=== PATIENT | female | born 1935 | race Caucasian/White ===

== ENCOUNTER 2020-06-19 13:52 | Inpatient (IN) | payer MEDICARE, OTHER ==
[2020-06-19] MEDS ORDERED: Sodium Chloride 0.9% 10 ML Syringe FLUSH PRN (14:33)
--- NOTE | 2020-06-19 14:42 | EDM.PDOC ---
ED HPI GENERAL MEDICAL PROBLEM - General Chief Complaint: General Stated Complaint: DIARRHEA,FATIGUE,DEHYDRATION Time Seen by Provider: 06/19/20 14:10 Source of Information: Reports: Patient History Limitations: Reports: No Limitations - History of Present Illness INITIAL COMMENTS - FREE TEXT/NARRATIVE: 85-year-old female presents to the emergency department today with complaints of 2-week history of increasing weakness, confusion, decreased appetite, diarrhea and urinary incontinence. Per the patient's family, patient has been incontinent of diarrhea stool for 2 weeks. They state that appetite has decreased significantly and had 2 episodes today where her legs gave out when transferring from the chair.Family has not noticed any hemiplegia or facial droop. They states that she is just so weak that her legs give out. Pt does take eliquis daily. Family denies any recent fever or vomiting however patient was nauseated on the way to the emergency department. Patient's family also states that the patient has had a weight loss of 40 to 60 pounds in the past 6 months. Patient's primary care physician is Dr. Tariq and family reports that the patient has not had a clinic visit with him for approximately 2 months. At that time she had similar symptoms and was diagnosed with a urinary tract infection. Pt has had both of her covid vaccinations, with the second one being given at the end of May. - Related Data Allergies Allergy/AdvReac Type Severity Reaction Status Date / Time No Known Allergies Allergy Verified 06/19/20 14:12 Home Meds: Home Meds Cholecalciferol (Vitamin D3) [Vitamin D3] 1,000 units PO DAILY 04/15/15 [History] Furosemide [Lasix] 40 mg PO BID 04/15/15 [History] Isosorbide Mononitrate [Imdur] 15 mg PO DAILY 04/15/15 [History] Levothyroxine Sodium [Synthroid] 112 mcg PO DAILY 04/15/15 [History] Metoprolol Succinate [Toprol XL] 1 tab PO DAILY 04/15/15 [History] Multivitamin [Multivitamins] 1 each PO DAILY 04/15/15 [History] [place]-3/DHA/Epa/Fish Oil [Fish Oil 1,000 mg Softgel] 1,200 mg PO DAILY 04/15/15 [History] Rosuvastatin [Crestor] 10 mg PO DAILY 04/15/15 [History] Bisacodyl [Dulcolax] 5 mg PO DAILY PRN #0 tablet 04/21/15 [Rx] Docusate Sodium [Colace] 100 mg PO BID PRN cap 04/21/15 [Rx] Famotidine [Pepcid] 20 mg PO BID tablet 04/21/15 [Rx] Rivaroxaban [Xarelto] 10 mg PO DAILY #32 tablet 04/21/15 [Rx] Aspirin 325 mg PO BEDTIME 06/19/20 [History] Past Medical History HEENT History: Reports: Cataract, Hard of Hearing, Impaired Vision Other HEENT History: wears glasses, dentures Cardiovascular History: Reports: CAD, High Cholesterol, Hypertension Other Cardiovascular History: chest pain, CABG in 2012 Other Respiratory History: elevated D dimer, shortness of breath Genitourinary History: Reports: Urinary Incontinence, UTI, Recurrent [employer] History: Reports: , Spontaneous Other Musculoskeletal History: radiculopathy of leg, back pain, osteoarthritis of R hip, back surgery , elbow surgery for nerve entrapment, achilles tendon repair Neurological History: Reports: TIA Other Neuro History: "mini stroke" per patient's daughter Psychiatric History: Reports: Depression Endocrine/Metabolic History: Reports: Hypothyroidism Other Endocrine/Metabolic History: bordlerine diabetic - Infectious Disease History Infectious Disease History: Reports: Measles - Past Surgical History HEENT Surgical History: Reports: Tonsillectomy Cardiovascular Surgical History: Reports: Coronary Artery Bypass GI Surgical History: Reports: Cholecystectomy Female Surgical History: Reports: Other (See Below) Other Female Surgeries/Procedures: bladder surgery 1977 Endocrine Surgical History: Reports: Thyroidectomy Social & Family History - Family History Cardiac: Reports: Heart Failure Other Cardiac Family History: mother OBGYN: Reports: Other Oncologic Family History: patient's father had cancer, does not recall what kind - Tobacco Use Tobacco Use Status *Q: Never Tobacco User Second Hand Smoke Exposure: No - Caffeine Use Caffeine Use: Reports: Coffee, Soda - Recreational Drug Use Recreational Drug Use: No ED ROS GENERAL - Review of Systems Review Of Systems: See Below Constitutional: Denies: Fever, Chills, Diaphoresis HEENT: Reports: No Symptoms Respiratory: Reports: No Symptoms. Denies: Shortness of Breath, Cough, Sputum Cardiovascular: Reports: Dyspnea on Exertion. Denies: Chest Pain, Edema Endocrine: Reports: No Symptoms GI/Abdominal: Reports: Diarrhea, Decreased Appetite, Nausea. Denies: Abdominal Pain, Constipation, Vomiting : Reports: No Symptoms Musculoskeletal: Reports: Other (generalized weakness) Skin: Reports: No Symptoms Neurological: Reports: Confusion (increased confusion) Psychiatric: Reports: No Symptoms Hematologic/Lymphatic: Reports: No Symptoms Immunologic: Reports: No Symptoms ED EXAM, GENERAL - Physical Exam Exam: See Below Exam Limited By: Other (confusion; pt's daughter is at the bedside) General Appearance: Alert, WD/WN, No Apparent Distress Ears: Normal External Exam, Hearing Grossly Normal Nose: Normal Inspection Throat/Mouth: Normal Inspection, Normal Lips, Normal Voice, No Airway Compromise Head: Atraumatic, Normocephalic Neck: Normal Inspection, Supple, Non-Tender, Full Range of Motion Respiratory/Chest: No Respiratory Distress, Lungs Clear, Normal Breath Sounds, No Accessory Muscle Use, Chest Non-Tender Cardiovascular: Normal Peripheral Pulses, No Edema, No Murmur, Irregularly Irregular Peripheral Pulses: 2+: Radial (L), Radial (R) GI/Abdominal: Normal Bowel Sounds, Soft, Non-Tender, No Distention (Female) Exam: Deferred Rectal (Female) Exam: Deferred Back Exam: Normal Inspection, Full Range of Motion Extremities: Normal Inspection, Normal Range of Motion, Non-Tender, No Pedal Edema, Normal Capillary Refill Neurological: Alert, Disoriented, Memory Loss Recent Events. No: Oriented, Normal Cognition Psychiatric: Normal Affect, Normal Mood Lymphatic: No Adenopathy Course - Vital Signs Text/Narrative:: 85 year old female with a 2 week history of increasing confusion, diarrhea, urinary incontinence, weakness and decreased appetite. Denies any recent fever, chills, or cough. Pt did complain of shortness of breath with activity this am while ambulating from the bathroom this am and was nauseated just prior to arrival to the ED. Per the staff at [facility], the patient had two episodes this morning where her legs gave out and she was assisted to the ground from the chair by staff. I have ordered labs, UA, and a chest xray. Last Recorded V/S: Last Vital Signs Temp 98.5 F 06/19/20 14:07 Pulse 96 06/19/20 14:07 Resp 14 06/19/20 14:07 BP 165/141 H 06/19/20 14:07 Pulse Ox 96 06/19/20 14:07 - Orders/Labs/Meds Orders: Active Orders 24 hr Category Date Time Status Insert [place] Catheter [Insert Urinary Catheter] [OM.PC] Care 06/19/20 15:00 Ordered Stat Chest 1V Frontal [CR] Stat Exams 06/19/20 14:33 Taken C DIFFICILE PCR W/REFLEX [MOLEC] Stat Lab 06/19/20 15:38 Ordered STOOL CULTURE/SHIGA TOXIN [MREF] Stat Lab 06/19/20 15:38 Ordered Sodium Chloride 0.9% [Saline Flush] Med 06/19/20 14:33 Active 10 ml FLUSH ASDIRECTED PRN Saline Lock Insert [OM.PC] Stat Oth 06/19/20 14:33 Ordered Medication Orders Acetaminophen (Acetaminophen 325 Mg Tab) 650 mg PO Q6H PRN PRN Reason: Pain (Mild 1-3)/fever Hydrocodone Bitart/Acetaminophen (Acetaminophen/Hydrocodone 325-5 Mg Tab) 1 tab PO Q6H PRN PRN Reason: Pain (moderate 4-6) Albuterol/Ipratropium (Albuterol/Ipratropium 3.0-0.5 Mg/3 Ml Neb Soln) 3 ml NEB Q4H PRN PRN Reason: Shortness Of Breath/wheezing Aspirin (Aspirin 325 Mg Tab.Ec) 325 mg PO BEDTIME [facility] Cholecalciferol (Cholecalciferol (Vitamin D3) 25 Mcg Tab) 25 mcg PO DAILY [facility] Hydralazine HCl (Hydralazine 20 Mg/Ml Sdv) 10 mg IVPUSH Q4H PRN PRN Reason: Hypertension Lactated Ringer's (Ringers, Lactated) 1,000 mls @ 60 mls/hr IV ASDIRECTED WAN Promethazine HCl 12.5 mg/ (Sodium Chloride) 50.5 mls @ 100 mls/hr IV Q6H PRN PRN Reason: Nausea/Vomiting Insulin Aspart (Insuln Aspart Prot/Insulin Aspart 100 Units/Ml 3 Ml Flexpen) 0 unit SUBCUT TIDMEALS [facility]; Protocol Isosorbide Mononitrate (Isosorbide Mononitrate 30 Mg Tab.Er) 15 mg PO DAILY [facility] Levothyroxine Sodium (Levothyroxine 112 Mcg Tab) 112 mcg PO DAILY [facility] Lorazepam (Lorazepam 2 Mg/Ml Sdv) 1 mg IV Q6H PRN PRN Reason: Agitation Metoprolol Succinate (Metoprolol Succinate 50 Mg Tab.Er) 50 mg PO DAILY [facility] Multivitamins (Multivitamins,Therapeutic Tab) 1 each PO DAILY [facility] Quetiapine Fumarate (Quetiapine 25 Mg Tab) 12.5 mg PO BID PRN PRN Reason: Agitation Rivaroxaban (Rivaroxaban 10 Mg Tab) 10 mg PO DAILY [facility] Rosuvastatin Calcium (Rosuvastatin 10 Mg Tab) 10 mg PO DAILY [facility] Sodium Chloride (Sodium Chloride 0.9% 10 Ml Syringe) 10 ml FLUSH ASDIRECTED PRN PRN Reason: Keep Vein Open Last Admin: 06/19/20 15:12 Dose: 10 ml Documented by: BRIAN Labs: Laboratory Tests 06/19/20 06/19/20 06/19/20 Range/Units 14:20 14:24 14:24 WBC 6.99 (3.98-10.04) K/mm3 RBC 4.12 (3.98-5.22) M/mm3 Hgb 13.1 D (11.2-15.7) gm/dl Hct 40.1 (34.1-44.9) % MCV 97.3 H D (79.4-94.8) fl MCH 31.8 (25.6-32.2) pg MCHC 32.7 (32.2-35.5) g/dl RDW Std Deviation 47.2 H (36.4-46.3) fL Plt Count 210 (182-369) K/mm3 MPV 9.1 L (9.4-12.3) fl Neut % (Auto) 71.5 H (34.0-71.1) % Lymph % (Auto) 17.2 L (19.3-51.7) % [place] % (Auto) 10.3 (4.7-12.5) % Eos % (Auto) 0.6 L (0.7-5.8) Baso % (Auto) 0.3 (0.1-1.2) % Neut # (Auto) 5.00 (1.56-6.13) K/mm3 Lymph # (Auto) 1.20 (1.18-3.74) K/mm3 [place] # (Auto) 0.72 H (0.24-0.36) K/mm3 Eos # (Auto) 0.04 (0.04-0.36) K/mm3 Baso # (Auto) 0.02 (0.01-0.08) K/mm3 Sodium 143 (136-145) mEq/L Potassium 3.5 (3.5-5.1) mEq/L Chloride 102 (98-107) mEq/L Carbon Dioxide 32 (21-32) mEq/L Anion Gap 12.5 (5-15) BUN 13 (7-18) mg/dL Creatinine 1.2 H (0.55-1.02) mg/dL Est Cr Clr Drug Dosing 29.06 mL/min Estimated GFR (MDRD) 43 (>60) mL/min BUN/Creatinine Ratio 10.8 L (14-18) Glucose 135 H (83-115) mg/dL Hemoglobin A1c 6.2 H ( - 5.6) % Calcium 9.2 (8.5-10.1) mg/dL Magnesium 2.0 (1.8-2.4) mg/dl Total Bilirubin 0.8 (0.2-1.0) mg/dL AST 29 (15-37) U/L ALT 37 (14-59) U/L Alkaline Phosphatase 45 L (46-116) U/L C-Reactive Protein 0.4 (<1.0) mg/dL Total Protein 6.9 (6.4-8.2) g/dl Albumin 3.1 L (3.4-5.0) g/dl Globulin 3.8 gm/dL Albumin/Globulin Ratio 0.8 L (1-2) Urine Color (Yellow) Urine Appearance (Clear) Urine pH (5.0-8.0) Ur Specific [place] (1.005-1.030) Urine Protein (Negative) Urine Glucose (UA) (Negative) Urine Ketones (Negative) Urine Occult Blood (Negative) Urine Nitrite (Negative) Urine Bilirubin (Negative) Urine Urobilinogen (0.2-1.0) Ur Leukocyte Esterase (Negative) U Hyaline Cast (Auto) (0-5) /lpf Urine RBC (0-5) /hpf Urine WBC (0-5) /hpf Ur Epithelial Cells (0-5) /hpf Urine Bacteria (FEW) /hpf Urine Mucus (FEW) /hpf Influenza Type A RNA (NEGATIVE) Influenza Type B RNA (NEGATIVE) SARS-CoV-2 RNA (RISHI) (NEGATIVE) 06/19/20 06/19/20 Range/Units 14:55 15:05 WBC (3.98-10.04) K/mm3 RBC (3.98-5.22) M/mm3 Hgb (11.2-15.7) gm/dl Hct (34.1-44.9) % MCV (79.4-94.8) fl MCH (25.6-32.2) pg MCHC (32.2-35.5) g/dl RDW Std Deviation (36.4-46.3) fL Plt Count (182-369) K/mm3 MPV (9.4-12.3) fl Neut % (Auto) (34.0-71.1) % Lymph % (Auto) (19.3-51.7) % [place] % (Auto) (4.7-12.5) % Eos % (Auto) (0.7-5.8) Baso % (Auto) (0.1-1.2) % Neut # (Auto) (1.56-6.13) K/mm3 Lymph # (Auto) (1.18-3.74) K/mm3 [place] # (Auto) (0.24-0.36) K/mm3 Eos # (Auto) (0.04-0.36) K/mm3 Baso # (Auto) (0.01-0.08) K/mm3 Sodium (136-145) mEq/L Potassium (3.5-5.1) mEq/L Chloride (98-107) mEq/L Carbon Dioxide (21-32) mEq/L Anion Gap (5-15) BUN (7-18) mg/dL Creatinine (0.55-1.02) mg/dL Est Cr Clr Drug Dosing mL/min Estimated GFR (MDRD) (>60) mL/min BUN/Creatinine Ratio (14-18) Glucose (83-115) mg/dL Hemoglobin A1c ( - 5.6) % Calcium (8.5-10.1) mg/dL Magnesium (1.8-2.4) mg/dl Total Bilirubin (0.2-1.0) mg/dL AST (15-37) U/L ALT (14-59) U/L Alkaline Phosphatase (46-116) U/L C-Reactive Protein (<1.0) mg/dL Total Protein (6.4-8.2) g/dl Albumin (3.4-5.0) g/dl Globulin gm/dL Albumin/Globulin Ratio (1-2) Urine Color Yellow (Yellow) Urine Appearance Clear (Clear) Urine pH 6.5 (5.0-8.0) Ur Specific [place] 1.020 (1.005-1.030) Urine Protein 1+ H (Negative) Urine Glucose (UA) Negative (Negative) Urine Ketones Negative (Negative) Urine Occult Blood Negative (Negative) Urine Nitrite Negative (Negative) Urine Bilirubin Negative (Negative) Urine Urobilinogen 1.0 (0.2-1.0) Ur Leukocyte Esterase Negative (Negative) U Hyaline Cast (Auto) 0-5 (0-5) /lpf Urine RBC 0-5 (0-5) /hpf Urine WBC 0-5 (0-5) /hpf Ur Epithelial Cells 0-5 (0-5) /hpf Urine Bacteria Few (FEW) /hpf Urine Mucus Few (FEW) /hpf Influenza Type A RNA Negative (NEGATIVE) Influenza Type B RNA Negative (NEGATIVE) SARS-CoV-2 RNA (RISHI) Negative (NEGATIVE) Meds: Medications Generic Name Dose Route Start Last Admin Trade Name Freq PRN Reason Stop Dose Admin Acetaminophen 650 mg 06/19/20 16:37 Acetaminophen 325 Mg Tab PO Q6H PRN Pain (Mild 1-3)/fever Hydrocodone Bitart/Acetaminophen 1 tab 06/19/20 16:37 Acetaminophen/Hydrocodone 325-5 Mg Tab PO Q6H PRN Pain (moderate 4-6) Albuterol/Ipratropium 3 ml 06/19/20 16:37 Albuterol/Ipratropium 3.0-0.5 Mg/3 Ml Neb Soln NEB Q4H PRN Shortness Of Breath/wheezing Aspirin 325 mg 06/19/20 21:00 Aspirin 325 Mg Tab.Ec PO BEDTIME WAN Cholecalciferol 25 mcg 06/20/20 09:00 Cholecalciferol (Vitamin D3) 25 Mcg Tab PO DAILY WAN Hydralazine HCl 10 mg 06/19/20 16:51 Hydralazine 20 Mg/Ml Sdv IVPUSH Q4H PRN Hypertension Lactated Ringer's 1,000 mls @ 60 mls/hr 06/19/20 16:45 Ringers, Lactated IV ASDIRECTED [facility] Promethazine HCl 12.5 mg/ 50.5 mls @ 100 mls/hr 06/19/20 16:37 Sodium Chloride IV Q6H PRN Nausea/Vomiting Insulin Aspart 0 unit 06/19/20 17:00 Insuln Aspart Prot/Insulin Aspart 100 Units/Ml 3 Ml Flexpen SUBCUT TIDMEALS [facility] Protocol Isosorbide Mononitrate 15 mg 06/20/20 09:00 Isosorbide Mononitrate 30 Mg Tab.Er PO DAILY [facility] Levothyroxine Sodium 112 mcg 06/20/20 09:00 Levothyroxine 112 Mcg Tab PO DAILY [facility] Lorazepam 1 mg 06/19/20 16:37 Lorazepam 2 Mg/Ml Sdv IV Q6H PRN Agitation Metoprolol Succinate 50 mg 06/20/20 09:00 Metoprolol Succinate 50 Mg Tab.Er PO DAILY [facility] Multivitamins 1 each 06/20/20 09:00 Multivitamins,Therapeutic Tab PO DAILY [facility] Quetiapine Fumarate 12.5 mg 06/19/20 16:53 Quetiapine 25 Mg Tab PO BID PRN Agitation Rivaroxaban 10 mg 06/20/20 09:00 Rivaroxaban 10 Mg Tab PO DAILY [facility] Rosuvastatin Calcium 10 mg 06/20/20 09:00 Rosuvastatin 10 Mg Tab PO DAILY [facility] Sodium Chloride 10 ml 06/19/20 14:33 06/19/20 15:12 Sodium Chloride 0.9% 10 Ml Syringe FLUSH 10 ml ASDIRECTED PRN Administration Keep Vein Open Discontinued Medications Generic Name Dose Route Start Last Admin Trade Name Freq PRN Reason Stop Dose Admin Heparin Sodium (Porcine) 5,000 units 06/19/20 16:45 Heparin Sodium 5,000 Units/Ml Vial SUBCUT Q8H [facility] - Re-Assessments/Exams Free Text/Narrative Re-Assessment/Exam: 06/19/20 15:40 Nothing acute is appreciated on portable view of the chest. Labs reveal a WBC of 6.99, hemoglobin 13.1, hematocrit 40.1, chemistry reveals sodium of 143, potassium 3.5, anion gap 12.5, BUN 13, creatinine 1.2, glucose 135, calcium 9.2, magnesium 2.0, alk phos 45, C-reactive protein 0.4 Urinalysis is unremarkable except for 1+ protein. I have ordered stool for C. difficile and cultures as the patient has had diarrhea stools for 2 weeks, increased weakness and was previously on antibiotics. [facility] has called to tell us that the patient will be unable to come back and reside at their facility. I will call Dr. Hawley the hospitalist supervisor education to see if we can admit the patient under his care. 06/19/20 17:30 Dr. Hawley has accepted care of this patient. She will be admitted to the hospital. Departure - Departure Time of Disposition: 17:30 Disposition: Admitted As Inpatient 65 Condition: Fair Clinical Impression: Weakness generalized - Discharge Information Sepsis Event Note (ED) - Evaluation Sepsis Screening Result: No Definite Risk - Focused Exam Vital Signs: Vital Signs Temp Pulse Resp BP Pulse Ox 06/19/20 14:07 98.5 F 96 14 165/141 H 96 - My Orders Last 24 Hours: My Active Orders 06/19/20 14:33 Chest 1V Frontal [CR] Stat Sodium Chloride 0.9% [Saline Flush] 10 ml FLUSH ASDIRECTED PRN Saline Lock Insert [OM.PC] Stat 06/19/20 15:00 Insert [place] Catheter [Insert Urinary Catheter] [OM.PC] Stat 06/19/20 15:38 C DIFFICILE PCR W/REFLEX [MOLEC] Stat STOOL CULTURE/SHIGA TOXIN [MREF] Stat - Assessment/Plan Last 24 Hours: My Active Orders 06/19/20 14:33 Chest 1V Frontal [CR] Stat Sodium Chloride 0.9% [Saline Flush] 10 ml FLUSH ASDIRECTED PRN Saline Lock Insert [OM.PC] Stat 06/19/20 15:00 Insert [place] Catheter [Insert Urinary Catheter] [OM.PC] Stat 06/19/20 15:38 C DIFFICILE PCR W/REFLEX [MOLEC] Stat STOOL CULTURE/SHIGA TOXIN [MREF] Stat
[2020-06-19 16:08] LABS: CORONAVIRUS COVID-19 NAA NEGATIVE (NEGATIVE)
[2020-06-19] MEDS ORDERED: Albuterol/Ipratropium 3.0-0.5 MG/3 ML Neb Soln NEB PRN (16:37)
[2020-06-19] MEDS ORDERED: Acetaminophen/HYDROcodone 325-5 MG Tab PO PRN (16:37)
[2020-06-19] MEDS ORDERED: LORazepam 2 MG/ML SDV IV PRN (16:37)
[2020-06-19] MEDS ORDERED: Acetaminophen 325 MG Tab PO PRN (16:37)
[2020-06-19] MEDS ORDERED: Promethazine 12.5 MG in Sodium Chloride 0.9% 50 ML IV PRN (16:37)
[2020-06-19] MEDS ORDERED: Heparin Sodium 5,000 Units/ML Vial SUBCUT SCH (16:45)
[2020-06-19] MEDS ORDERED: Lactated Ringers 1,000 ML IV SCH (16:45)
[2020-06-19] MEDS ORDERED: hydrALAZINE 20 MG/ML SDV IVPUSH PRN (16:51)
[2020-06-19] MEDS ORDERED: QUEtiapine 25 MG Tab PO PRN (16:53)
[2020-06-19] MEDS ORDERED: Insuln Aspart Prot/Insulin Aspart 100 Units/ML 3 ML FlexPen SUBCUT SCH (17:00)
--- NOTE | 2020-06-19 17:06 | PCM.HP.2 ---
H&P History of Present Illness - General Date of Service: 06/19/20 Admit Problem/Dx: Admission Diagnosis/Problem Admission Diagnosis/Problem Diarrhea Source of Information: Patient, Family - History of Present Illness Initial Comments - Free Text/Narative: Patient is an 85-year-old female with a history of COPD status post CABG, prediabetes, hypertension, and hypothyroidism who was brought to the ER from assisted living due to generalized weakness and diarrhea. Patient is a poor historian due to possible dementia. As per daughter and the patient, she has been having diarrhea for about 2 weeks which has been worsening over the past 2 days associated with nausea, lightheadedness, shortness of breath when walking, and generalized weakness. Patient is so weak so that patient had episodes when her legs gave up. She did not lose consciousness. No injury to head. Otherwise patient is fine. Denies headache, chest pain, abdominal pain, fever, chills, or dysuria. In the ER, CT and the coated 19 screening were sent. Chest x-ray negative for acute change. Patient received antibiotics 2 months ago for UTI. - Related Data Allergies/Adverse Reactions: Allergies Allergy/AdvReac Type Severity Reaction Status Date / Time No Known Allergies Allergy Verified 06/19/20 14:12 Home Medications: Home Meds Cholecalciferol (Vitamin D3) [Vitamin D3] 1,000 units PO DAILY 04/15/15 [History] Furosemide [Lasix] 40 mg PO BID 04/15/15 [History] Isosorbide Mononitrate [Imdur] 15 mg PO DAILY 04/15/15 [History] Levothyroxine Sodium [Synthroid] 112 mcg PO DAILY 04/15/15 [History] Metoprolol Succinate [Toprol XL] 1 tab PO DAILY 04/15/15 [History] Multivitamin [Multivitamins] 1 each PO DAILY 04/15/15 [History] [place]-3/DHA/Epa/Fish Oil [Fish Oil 1,000 mg Softgel] 1,200 mg PO DAILY 04/15/15 [History] Rosuvastatin [Crestor] 10 mg PO DAILY 04/15/15 [History] Bisacodyl [Dulcolax] 5 mg PO DAILY PRN #0 tablet 04/21/15 [Rx] Docusate Sodium [Colace] 100 mg PO BID PRN cap 04/21/15 [Rx] Famotidine [Pepcid] 20 mg PO BID tablet 04/21/15 [Rx] Rivaroxaban [Xarelto] 10 mg PO DAILY #32 tablet 04/21/15 [Rx] Aspirin 325 mg PO BEDTIME 06/19/20 [History] Past Medical History HEENT History: Reports: Cataract, Hard of Hearing, Impaired Vision Other HEENT History: wears glasses, dentures Cardiovascular History: Reports: CAD, High Cholesterol, Hypertension Other Cardiovascular History: chest pain, CABG in 2011 Other Respiratory History: elevated D dimer, shortness of breath Genitourinary History: Reports: Urinary Incontinence, UTI, 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: , 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 Other Musculoskeletal History: radiculopathy of leg, back pain, osteoarthritis of R hip, back surgery , elbow surgery for nerve entrapment, achilles tendon repair Neurological History: Reports: TIA Other Neuro History: "mini stroke" per patient's daughter Psychiatric History: Reports: Depression Endocrine/Metabolic History: Reports: Hypothyroidism Other Endocrine/Metabolic History: bordlerine diabetic - Infectious Disease History Infectious Disease History: Reports: Measles - Past Surgical History HEENT Surgical History: Reports: Tonsillectomy Cardiovascular Surgical History: Reports: Coronary Artery Bypass GI Surgical History: Reports: Cholecystectomy Female Surgical History: Reports: Other (See Below) Other Female Surgeries/Procedures: bladder surgery 1976 Endocrine Surgical History: Reports: Thyroidectomy Social & Family History - Family History Family Medical History: No Pertinent Family History (Denies genetic diseases in the family) Cardiac: Reports: Heart Failure Other Cardiac Family History: mother OBGYN: Reports: Other Oncologic Family History: patient's father had cancer, does not recall what kind - Tobacco Use Tobacco Use Status *Q: Never Tobacco User Second Hand Smoke Exposure: No - Caffeine Use Caffeine Use: Reports: Coffee, Soda - Recreational Drug Use Recreational Drug Use: No H&P Review of Systems - Review of Systems: Review Of Systems: See Below General: Reports: Weakness, Fatigue, Decreased Appetite HEENT: Reports: No Symptoms Pulmonary: Reports: No Symptoms Cardiovascular: Reports: No Symptoms Gastrointestinal: Reports: Diarrhea, Decreased Appetite, Nausea Genitourinary: Reports: No Symptoms Musculoskeletal: Reports: No Symptoms Skin: Reports: No Symptoms Psychiatric: Reports: No Symptoms Neurological: Reports: No Symptoms Hematologic/Lymphatic: Reports: No Symptoms Immunologic: Reports: No Symptoms Exam - Exam Exam: See Below - Vital Signs Vital Signs: Last Vital Signs Temp 36.9 C 06/19/20 14:07 Pulse 96 06/19/20 14:07 Resp 14 06/19/20 14:07 BP 165/141 H 06/19/20 14:07 Pulse Ox 96 06/19/20 14:07 Weight: 74.843 kg - Exam General: Alert, Cooperative HEENT: Conjunctiva Clear, EOMI, Pupils Equal, Pupils Reactive Neck: Supple, Full Range of Motion Lungs: Clear to Auscultation, Normal Respiratory Effort Cardiovascular: Normal S1, Normal S2 GI/Abdominal Exam: Normal Bowel Sounds, Soft, Non-Tender, No Organomegaly, No Distention Extremities: Normal Inspection, Normal Range of Motion, Non-Tender, No Pedal Edema Skin: Warm, Dry, Intact Neurological: Cranial Nerves Intact, Reflexes Equal Bilateral, Strength Equal Bilateral, Normal Speech, Sensation Intact Neuro Extensive - Mental Status: Alert, Normal Mood/Affect Neuro Extensive - Motor, Sensory, Reflexes: CN II-XII Intact, Normal Reflexes Psychiatric: Alert, Normal Affect, Normal Mood - Patient Data Lab Results Last 24 hrs: Laboratory Results - last 24 hr 06/19/20 06/19/20 06/19/20 Range/Units 14:24 14:24 14:55 WBC 6.99 (3.98-10.04) K/mm3 RBC 4.12 (3.98-5.22) M/mm3 Hgb 13.1 D (11.2-15.7) gm/dl Hct 40.1 (34.1-44.9) % MCV 97.3 H D (79.4-94.8) fl MCH 31.8 (25.6-32.2) pg MCHC 32.7 (32.2-35.5) g/dl RDW Std Deviation 47.2 H (36.4-46.3) fL Plt Count 210 (182-369) K/mm3 MPV 9.1 L (9.4-12.3) fl Neut % (Auto) 71.5 H (34.0-71.1) % Lymph % (Auto) 17.2 L (19.3-51.7) % [place] % (Auto) 10.3 (4.7-12.5) % Eos % (Auto) 0.6 L (0.7-5.8) Baso % (Auto) 0.3 (0.1-1.2) % Neut # (Auto) 5.00 (1.56-6.13) K/mm3 Lymph # (Auto) 1.20 (1.18-3.74) K/mm3 [place] # (Auto) 0.72 H (0.24-0.36) K/mm3 Eos # (Auto) 0.04 (0.04-0.36) K/mm3 Baso # (Auto) 0.02 (0.01-0.08) K/mm3 Sodium 143 (136-145) mEq/L Potassium 3.5 (3.5-5.1) mEq/L Chloride 102 (98-107) mEq/L Carbon Dioxide 32 (21-32) mEq/L Anion Gap 12.5 (5-15) BUN 13 (7-18) mg/dL Creatinine 1.2 H (0.55-1.02) mg/dL Est Cr Clr Drug Dosing 29.06 mL/min Estimated GFR (MDRD) 43 (>60) mL/min BUN/Creatinine Ratio 10.8 L (14-18) Glucose 135 H (83-115) mg/dL Calcium 9.2 (8.5-10.1) mg/dL Magnesium 2.0 (1.8-2.4) mg/dl Total Bilirubin 0.8 (0.2-1.0) mg/dL AST 29 (15-37) U/L ALT 37 (14-59) U/L Alkaline Phosphatase 45 L (46-116) U/L C-Reactive Protein 0.4 (<1.0) mg/dL Total Protein 6.9 (6.4-8.2) g/dl Albumin 3.1 L (3.4-5.0) g/dl Globulin 3.8 gm/dL Albumin/Globulin Ratio 0.8 L (1-2) Urine Color (Yellow) Urine Appearance (Clear) Urine pH (5.0-8.0) Ur Specific [place] (1.005-1.030) Urine Protein (Negative) Urine Glucose (UA) (Negative) Urine Ketones (Negative) Urine Occult Blood (Negative) Urine Nitrite (Negative) Urine Bilirubin (Negative) Urine Urobilinogen (0.2-1.0) Ur Leukocyte Esterase (Negative) U Hyaline Cast (Auto) (0-5) /lpf Urine RBC (0-5) /hpf Urine WBC (0-5) /hpf Ur Epithelial Cells (0-5) /hpf Urine Bacteria (FEW) /hpf Urine Mucus (FEW) /hpf Influenza Type A RNA Negative (NEGATIVE) Influenza Type B RNA Negative (NEGATIVE) SARS-CoV-2 RNA (RISHI) Negative (NEGATIVE) 06/19/20 Range/Units 15:05 WBC (3.98-10.04) K/mm3 RBC (3.98-5.22) M/mm3 Hgb (11.2-15.7) gm/dl Hct (34.1-44.9) % MCV (79.4-94.8) fl MCH (25.6-32.2) pg MCHC (32.2-35.5) g/dl RDW Std Deviation (36.4-46.3) fL Plt Count (182-369) K/mm3 MPV (9.4-12.3) fl Neut % (Auto) (34.0-71.1) % Lymph % (Auto) (19.3-51.7) % [place] % (Auto) (4.7-12.5) % Eos % (Auto) (0.7-5.8) Baso % (Auto) (0.1-1.2) % Neut # (Auto) (1.56-6.13) K/mm3 Lymph # (Auto) (1.18-3.74) K/mm3 [place] # (Auto) (0.24-0.36) K/mm3 Eos # (Auto) (0.04-0.36) K/mm3 Baso # (Auto) (0.01-0.08) K/mm3 Sodium (136-145) mEq/L Potassium (3.5-5.1) mEq/L Chloride (98-107) mEq/L Carbon Dioxide (21-32) mEq/L Anion Gap (5-15) BUN (7-18) mg/dL Creatinine (0.55-1.02) mg/dL Est Cr Clr Drug Dosing mL/min Estimated GFR (MDRD) (>60) mL/min BUN/Creatinine Ratio (14-18) Glucose (83-115) mg/dL Calcium (8.5-10.1) mg/dL Magnesium (1.8-2.4) mg/dl Total Bilirubin (0.2-1.0) mg/dL AST (15-37) U/L ALT (14-59) U/L Alkaline Phosphatase (46-116) U/L C-Reactive Protein (<1.0) mg/dL Total Protein (6.4-8.2) g/dl Albumin (3.4-5.0) g/dl Globulin gm/dL Albumin/Globulin Ratio (1-2) Urine Color Yellow (Yellow) Urine Appearance Clear (Clear) Urine pH 6.5 (5.0-8.0) Ur Specific [place] 1.020 (1.005-1.030) Urine Protein 1+ H (Negative) Urine Glucose (UA) Negative (Negative) Urine Ketones Negative (Negative) Urine Occult Blood Negative (Negative) Urine Nitrite Negative (Negative) Urine Bilirubin Negative (Negative) Urine Urobilinogen 1.0 (0.2-1.0) Ur Leukocyte Esterase Negative (Negative) U Hyaline Cast (Auto) 0-5 (0-5) /lpf Urine RBC 0-5 (0-5) /hpf Urine WBC 0-5 (0-5) /hpf Ur Epithelial Cells 0-5 (0-5) /hpf Urine Bacteria Few (FEW) /hpf Urine Mucus Few (FEW) /hpf Influenza Type A RNA (NEGATIVE) Influenza Type B RNA (NEGATIVE) SARS-CoV-2 RNA (RISHI) (NEGATIVE) Result Diagrams: 06/19/20 14:24 06/19/20 14:24 Sepsis Event Note - Evaluation Sepsis Screening Result: No Definite Risk - Focused Exam Vital Signs: Vital Signs Temp Pulse Resp BP Pulse Ox 06/19/20 14:07 36.9 C 96 14 165/141 H 96 Problem List Initiated/Reviewed/Updated: Yes Orders Last 24hrs: Active Orders 24 hr Category Date Time Status Patient Status [ADT] Routine ADT 06/19/20 16:37 Ordered Bedrest Bedside Commode [RC] ASDIRECTED Care 06/19/20 16:37 Ordered Cardiac Monitoring [RC] CONTINUOUS Care 06/19/20 16:39 Ordered EKG Documentation Completion [RC] ROUTINE Care 06/19/20 16:44 Ordered Height and Weight [RC] DAILY Care 06/19/20 16:37 Ordered Insert [place] Catheter [Insert Urinary Catheter] [OM.PC] Care 06/19/20 15:00 Ordered Stat Intake and Output [RC] QSHIFT Care 06/19/20 16:39 Ordered Oxygen Therapy [RC] PRN Care 06/19/20 16:37 Ordered RT Aerosol Therapy [RC] ASDIRECTED Care 06/19/20 16:44 Ordered VTE/DVT Education [RC] PER UNIT ROUTINE Care 06/19/20 16:37 Ordered Vital Signs [RC] Q4H Care 06/19/20 16:37 Ordered Consult to Nuclear Chemistry Technician [CONS] Routine Cons 06/19/20 16:44 Ordered OT Evaluation and Treatment [CONS] Routine Cons 06/19/20 16:44 Ordered PT Evaluation and Treatment [CONS] Routine Cons 06/19/20 16:44 Ordered Clear Liquid Diet [DIET] Diet 06/19/20 Dinner Ordered Chest 1V Frontal [CR] Stat Exams 06/19/20 14:33 Taken A1C [GLYCOSYLATED HEMOGLOBIN,HGBA1C] [CHEM] Stat Lab 06/19/20 16:56 Ordered C DIFFICILE PCR W/REFLEX [MOLEC] Stat Lab 06/19/20 15:38 Ordered CBC WITH AUTO DIFF [HEME] DAILY Lab 06/20/20 05:00 Ordered CBC WITH AUTO DIFF [HEME] DAILY Lab 06/21/20 05:00 Ordered CBC WITH AUTO DIFF [HEME] DAILY Lab 06/22/20 05:00 Ordered CBC WITH AUTO DIFF [HEME] DAILY Lab 06/23/20 05:00 Ordered CBC WITH AUTO DIFF [HEME] DAILY Lab 06/24/20 05:00 Ordered CBC WITH AUTO DIFF [HEME] DAILY Lab 06/25/20 05:00 Ordered COMPREHENSIVE METABOLIC PN,CMP [CHEM] DAILY Lab 06/20/20 05:00 Ordered COMPREHENSIVE METABOLIC PN,CMP [CHEM] DAILY Lab 06/21/20 05:00 Ordered COMPREHENSIVE METABOLIC PN,CMP [CHEM] DAILY Lab 06/22/20 05:00 Ordered COMPREHENSIVE METABOLIC PN,CMP [CHEM] DAILY Lab 06/23/20 05:00 Ordered COMPREHENSIVE METABOLIC PN,CMP [CHEM] DAILY Lab 06/24/20 05:00 Ordered COMPREHENSIVE METABOLIC PN,CMP [CHEM] DAILY Lab 06/25/20 05:00 Ordered INR,PT,PROTHROMBIN TIME [COAG] Routine Lab 06/19/20 16:44 Ordered PRO B-TYPE NATRIUR PEPT,BNPPRO [CHEM] Stat Lab 06/19/20 16:56 Ordered PROCALCITONIN [REF] Routine Lab 06/19/20 16:57 Ordered STOOL CULTURE/SHIGA TOXIN [MREF] Stat Lab 06/19/20 15:38 Ordered STOOL CULTURE/SHIGA TOXIN [MREF] Stat Lab 06/19/20 16:53 Ordered TROPONIN I [CHEM] Q6H Lab 06/19/20 16:44 Ordered TROPONIN I [CHEM] Q6H Lab 06/19/20 22:44 Ordered Acetaminophen [TylenoL] Med 06/19/20 16:37 Ordered 650 mg PO Q6H PRN Acetaminophen/HYDROcodone [[place] 325-5 MG] Med 06/19/20 16:37 Ordered 1 tab PO Q6H PRN Albuterol/Ipratropium [DuoNeb 3.0-0.5 MG/3 ML] Med 06/19/20 16:37 Ordered 3 ml NEB Q4H PRN Aspirin Med 06/19/20 21:00 Ordered 325 mg PO BEDTIME Cholecalciferol (Vitamin D3) [Vitamin D3] Med 06/20/20 09:00 Ordered 1,000 units PO DAILY Insuln Asp Prot/Insulin Aspart [NovoLOG Mix 70-30] Med 06/19/20 17:00 Ordered See Protocol SUBCUT TIDMEALS Isosorbide Mononitrate [Imdur] Med 06/20/20 09:00 Ordered 15 mg PO DAILY LORazepam [Ativan] Med 06/19/20 16:37 Ordered 1 mg IV Q6H PRN Lactated Ringers [Ringers, Lactated] 1,000 ml Med 06/19/20 16:45 Ordered IV ASDIRECTED Levothyroxine Med 06/20/20 09:00 Ordered 112 mcg PO DAILY Metoprolol Succinate [Toprol XL] Med 06/20/20 09:00 Ordered 50 mg PO DAILY Multivitamin [Multivitamins] Med 06/20/20 09:00 Ordered 1 each PO DAILY Promethazine [Phenergan] 12.5 mg Med 06/19/20 16:37 Ordered Sodium Chloride 0.9% [Normal Saline] 50 ml IV Q6H QUEtiapine [SEROqueL] Med 06/19/20 16:53 Ordered 12.5 mg PO BID PRN Rivaroxaban [Xarelto] Med 06/20/20 09:00 Ordered 10 mg PO DAILY Rosuvastatin [Crestor] Med 06/20/20 09:00 Ordered 10 mg PO DAILY Sodium Chloride 0.9% [Saline Flush] Med 06/19/20 14:33 Active 10 ml FLUSH ASDIRECTED PRN hydrALAZINE [Apresoline] Med 06/19/20 16:51 Ordered 10 mg IVPUSH Q4H PRN Saline Lock Insert [OM.PC] Stat Oth 06/19/20 14:33 Ordered Resuscitation Status Routine Resus Stat 06/19/20 16:37 Ordered Medication Orders Acetaminophen (Acetaminophen 325 Mg Tab) 650 mg PO Q6H PRN PRN Reason: Pain (Mild 1-3)/fever Hydrocodone Bitart/Acetaminophen (Acetaminophen/Hydrocodone 325-5 Mg Tab) 1 tab PO Q6H PRN PRN Reason: Pain (moderate 4-6) Albuterol/Ipratropium (Albuterol/Ipratropium 3.0-0.5 Mg/3 Ml Neb Soln) 3 ml NEB Q4H PRN PRN Reason: Shortness Of Breath/wheezing Cholecalciferol (Cholecalciferol (Vitamin D3) 25 Mcg Tab) mcg PO DAILY WAN Hydralazine HCl (Hydralazine 20 Mg/Ml Sdv) 10 mg IVPUSH Q4H PRN PRN Reason: Hypertension Lactated Ringer's (Ringers, Lactated) 1,000 mls @ 60 mls/hr IV ASDIRECTED WAN Promethazine HCl 12.5 mg/ (Sodium Chloride) 50.5 mls @ 100 mls/hr IV Q6H PRN PRN Reason: Nausea/Vomiting Insulin Aspart (Insuln Aspart Prot/Insulin Aspart 100 Units/Ml 3 Ml Flexpen) 0 unit SUBCUT TIDMEALS WAN; Protocol Isosorbide Mononitrate (Isosorbide Mononitrate 30 Mg Tab.Er) 15 mg PO DAILY [facility] Levothyroxine Sodium (Levothyroxine 112 Mcg Tab) 112 mcg PO DAILY [facility] Lorazepam (Lorazepam 2 Mg/Ml Sdv) 1 mg IV Q6H PRN PRN Reason: Agitation Metoprolol Succinate (Metoprolol Succinate 50 Mg Tab.Er) 50 mg PO DAILY [facility] Non-Formulary Medication (Aspirin) 325 mg PO BEDTIME WAN Non-Formulary Medication (Multivitamin [Multivitamins]) 1 each PO DAILY [facility] Quetiapine Fumarate (Quetiapine 25 Mg Tab) 12.5 mg PO BID PRN PRN Reason: Agitation Rivaroxaban (Rivaroxaban 10 Mg Tab) 10 mg PO DAILY [facility] Rosuvastatin Calcium (Rosuvastatin 10 Mg Tab) 10 mg PO DAILY [facility] Sodium Chloride (Sodium Chloride 0.9% 10 Ml Syringe) 10 ml FLUSH ASDIRECTED PRN PRN Reason: Keep Vein Open Last Admin: 06/19/20 15:12 Dose: 10 ml Documented by: BRIAN Assessment/Plan Comment:: Patient is an 85-year-old female with a history of COPD status post CABG, prediabetes, hypertension, and hypothyroidism who was brought to the ER from assisted living due to generalized weakness and diarrhea. Assessment and plan: Diarrhea Etiology unknown History of use of antibiotics 2 months ago for UTI C. difficile Stool culture IV fluid Generalized weakness Could be due to dehydration from diarrhea. No evidence of infection. No focal neurological deficits IV fluid PT OT CAD, s/p CABG Continue home medication aspirin and statin Prediabetes Hemoglobin A1c Insulin sliding scale HTN Continue home medication Imdur and metoprolol Hydralazine as needed ADAMA or ADAMA on CKD, creatinine 0.9 on 04/19/2015 Along with nephrotoxic meds Intake and output Repeat the renal function the morning Dehydration IV fluid Self care deficit As per daughter, patient has lost 40 to 6 pounds over the past 6 months Possible dementia PT OT Dietitian consult Hypothyroidism Continue home medication Synthroid DVT prophylaxis: Xarelto (do not know why patient is on Xarelto. Will discuss with the family) CODE STATUS: DNR/DNI. Discussed with the patient and the daughter about the C ODE STATUS. Both agreed with DNR and DNI. as per daughter, patient has a will- DNR/DNI. Disposition: PT OT - Mortality Measure Prognosis:: Poor
[2020-06-19 17:19] LABS: HEMOGLOBIN A1C 6.2 %
[2020-06-19] MEDS: Heparin Sodium 5,000 Units/ML Vial SUBCUT SCH ×2 (21:35→21:40)
[2020-06-19] MEDS: Donepezil 10 MG Tab PO SCH (21:35)
[2020-06-19] MEDS: Rosuvastatin 10 MG Tab PO SCH (21:35)
[2020-06-19] MEDS: Aspirin 325 MG Tab.EC PO SCH (21:35)
[2020-06-20] MEDS: Heparin Sodium 5,000 Units/ML Vial SUBCUT SCH (06:24)
--- NOTE | 2020-06-20 07:57 | CR ---
Chest: Portable view of the chest was obtained. Comparison: Prior chest x-ray of 07/03/11. Heart size and mediastinum are within normal limits for portable technique. Previous sternotomy is noted. Small parenchymal density which correlates to calcification within the pleura is noted within the upper right lung. Lungs otherwise are clear. No acute osseous finding is noted. Impression: 1. Findings as noted above. 2. Nothing acute is seen on portable chest x-ray. Diagnostic code #2
[2020-06-20] MEDS ORDERED: Rivaroxaban 10 MG Tab PO SCH (09:00)
[2020-06-20] MEDS ORDERED: Rosuvastatin 10 MG Tab PO SCH (09:00)
[2020-06-20] MEDS ORDERED: Multivitamins,Therapeutic Tab PO SCH (09:00)
[2020-06-20] MEDS ORDERED: Metoprolol Succinate 25 MG Tab.ER PO SCH (09:00)
[2020-06-20] MEDS ORDERED: Metoprolol Succinate 50 MG Tab.ER PO SCH ×2 (09:00)
[2020-06-20] MEDS ORDERED: Isosorbide Mononitrate 30 MG Tab.ER PO SCH (09:00)
[2020-06-20] MEDS: Levothyroxine 112 MCG Tab PO SCH (09:09)
[2020-06-20] MEDS: Sodium Chloride/Potassium Chloride Tab PO SCH ×2 (09:09→19:48)
[2020-06-20] MEDS: Cholecalciferol (Vitamin D3) 25 MCG Tab PO SCH (09:09)
--- NOTE | 2020-06-20 11:10 | PCM.PN ---
- General Info Date of Service: 06/20/20 Admission Dx/Problem (Free Text): Admission Diagnosis/Problem Admission Diagnosis/Problem Diarrhea Subjective Update: Patient is an 85-year-old female with a history of COPD status post CABG, prediabetes, hypertension, and hypothyroidism who was brought to the ER from assisted living due to generalized weakness and diarrhea. Patient no longer has diarrhea. Denies nausea or vomiting. Vital signs are stable and acceptable C. difficile pending Platelets 160, potassium 2.8, creatinine 1.1 MSE 6.2 Pro BMP 2411, troponin negative x2 - Review of Systems Systems Review Comment:: General: Reports: Weakness, Fatigue, Decreased Appetite HEENT: Reports: No Symptoms Pulmonary: Reports: No Symptoms Cardiovascular: Reports: No Symptoms Gastrointestinal: Reports: Decreased Appetite, Genitourinary: Reports: No Symptoms Musculoskeletal: Reports: No Symptoms Skin: Reports: No Symptoms Psychiatric: Reports: No Symptoms Neurological: Reports: No Symptoms Hematologic/Lymphatic: Reports: No Symptoms Immunologic: Reports: No Symptoms - Patient Data Vitals - Most Recent: Last Vital Signs Temp 36.4 C 06/20/20 08:14 Pulse 58 L 06/20/20 09:08 Resp 18 06/20/20 08:14 BP 92/56 L 06/20/20 09:08 Pulse Ox 97 06/20/20 08:14 Weight - Most Recent: 69.989 kg I&O - Last 24 Hours: Intake & Output 06/19/20 06/20/20 06/20/20 22:59 06:59 14:59 Intake Total 120 688 Output Total 40 Balance 120 648 Lab Results Last 24 Hours: Laboratory Results - last 24 hr 06/19/20 06/19/20 06/19/20 Range/Units 14:20 14:24 14:24 WBC 6.99 (3.98-10.04) K/mm3 RBC 4.12 (3.98-5.22) M/mm3 Hgb 13.1 D (11.2-15.7) gm/dl Hct 40.1 (34.1-44.9) % MCV 97.3 H D (79.4-94.8) fl MCH 31.8 (25.6-32.2) pg MCHC 32.7 (32.2-35.5) g/dl RDW Std Deviation 47.2 H (36.4-46.3) fL Plt Count 210 (182-369) K/mm3 MPV 9.1 L (9.4-12.3) fl Neut % (Auto) 71.5 H (34.0-71.1) % Lymph % (Auto) 17.2 L (19.3-51.7) % [place] % (Auto) 10.3 (4.7-12.5) % Eos % (Auto) 0.6 L (0.7-5.8) Baso % (Auto) 0.3 (0.1-1.2) % Neut # (Auto) 5.00 (1.56-6.13) K/mm3 Lymph # (Auto) 1.20 (1.18-3.74) K/mm3 [place] # (Auto) 0.72 H (0.24-0.36) K/mm3 Eos # (Auto) 0.04 (0.04-0.36) K/mm3 Baso # (Auto) 0.02 (0.01-0.08) K/mm3 PT (9.7-12.0) SECONDS INR Sodium 143 (136-145) mEq/L Potassium 3.5 (3.5-5.1) mEq/L Chloride 102 (98-107) mEq/L Carbon Dioxide 32 (21-32) mEq/L Anion Gap 12.5 (5-15) BUN 13 (7-18) mg/dL Creatinine 1.2 H (0.55-1.02) mg/dL Est Cr Clr Drug Dosing 29.06 mL/min Estimated GFR (MDRD) 43 (>60) mL/min BUN/Creatinine Ratio 10.8 L (14-18) Glucose 135 H (83-115) mg/dL POC Glucose (83-110) mg/dL Hemoglobin A1c 6.2 H ( - 5.6) % Calcium 9.2 (8.5-10.1) mg/dL Magnesium 2.0 (1.8-2.4) mg/dl Total Bilirubin 0.8 (0.2-1.0) mg/dL AST 29 (15-37) U/L ALT 37 (14-59) U/L Alkaline Phosphatase 45 L (46-116) U/L Troponin I (0.00-0.056) ng/mL C-Reactive Protein 0.4 (<1.0) mg/dL NT-Pro-B Natriuret Pep (0-450) pg/mL Total Protein 6.9 (6.4-8.2) g/dl Albumin 3.1 L (3.4-5.0) g/dl Globulin 3.8 gm/dL Albumin/Globulin Ratio 0.8 L (1-2) Urine Color (Yellow) Urine Appearance (Clear) Urine pH (5.0-8.0) Ur Specific [place] (1.005-1.030) Urine Protein (Negative) Urine Glucose (UA) (Negative) Urine Ketones (Negative) Urine Occult Blood (Negative) Urine Nitrite (Negative) Urine Bilirubin (Negative) Urine Urobilinogen (0.2-1.0) Ur Leukocyte Esterase (Negative) U Hyaline Cast (Auto) (0-5) /lpf Urine RBC (0-5) /hpf Urine WBC (0-5) /hpf Ur Epithelial Cells (0-5) /hpf Urine Bacteria (FEW) /hpf Urine Mucus (FEW) /hpf Influenza Type A RNA (NEGATIVE) Influenza Type B RNA (NEGATIVE) SARS-CoV-2 RNA (RISHI) (NEGATIVE) MRSA (PCR) 06/19/20 06/19/20 06/19/20 Range/Units 14:55 15:05 17:15 WBC (3.98-10.04) K/mm3 RBC (3.98-5.22) M/mm3 Hgb (11.2-15.7) gm/dl Hct (34.1-44.9) % MCV (79.4-94.8) fl MCH (25.6-32.2) pg MCHC (32.2-35.5) g/dl RDW Std Deviation (36.4-46.3) fL Plt Count (182-369) K/mm3 MPV (9.4-12.3) fl Neut % (Auto) (34.0-71.1) % Lymph % (Auto) (19.3-51.7) % [place] % (Auto) (4.7-12.5) % Eos % (Auto) (0.7-5.8) Baso % (Auto) (0.1-1.2) % Neut # (Auto) (1.56-6.13) K/mm3 Lymph # (Auto) (1.18-3.74) K/mm3 [place] # (Auto) (0.24-0.36) K/mm3 Eos # (Auto) (0.04-0.36) K/mm3 Baso # (Auto) (0.01-0.08) K/mm3 PT 11.9 (9.7-12.0) SECONDS INR 1.11 Sodium (136-145) mEq/L Potassium (3.5-5.1) mEq/L Chloride (98-107) mEq/L Carbon Dioxide (21-32) mEq/L Anion Gap (5-15) BUN (7-18) mg/dL Creatinine (0.55-1.02) mg/dL Est Cr Clr Drug Dosing mL/min Estimated GFR (MDRD) (>60) mL/min BUN/Creatinine Ratio (14-18) Glucose (83-115) mg/dL POC Glucose (83-110) mg/dL Hemoglobin A1c ( - 5.6) % Calcium (8.5-10.1) mg/dL Magnesium (1.8-2.4) mg/dl Total Bilirubin (0.2-1.0) mg/dL AST (15-37) U/L ALT (14-59) U/L Alkaline Phosphatase (46-116) U/L Troponin I (0.00-0.056) ng/mL C-Reactive Protein (<1.0) mg/dL NT-Pro-B Natriuret Pep (0-450) pg/mL Total Protein (6.4-8.2) g/dl Albumin (3.4-5.0) g/dl Globulin gm/dL Albumin/Globulin Ratio (1-2) Urine Color Yellow (Yellow) Urine Appearance Clear (Clear) Urine pH 6.5 (5.0-8.0) Ur Specific [place] 1.020 (1.005-1.030) Urine Protein 1+ H (Negative) Urine Glucose (UA) Negative (Negative) Urine Ketones Negative (Negative) Urine Occult Blood Negative (Negative) Urine Nitrite Negative (Negative) Urine Bilirubin Negative (Negative) Urine Urobilinogen 1.0 (0.2-1.0) Ur Leukocyte Esterase Negative (Negative) U Hyaline Cast (Auto) 0-5 (0-5) /lpf Urine RBC 0-5 (0-5) /hpf Urine WBC 0-5 (0-5) /hpf Ur Epithelial Cells 0-5 (0-5) /hpf Urine Bacteria Few (FEW) /hpf Urine Mucus Few (FEW) /hpf Influenza Type A RNA Negative (NEGATIVE) Influenza Type B RNA Negative (NEGATIVE) SARS-CoV-2 RNA (RISHI) Negative (NEGATIVE) MRSA (PCR) 06/19/20 06/19/20 06/19/20 Range/Units 17:15 17:15 21:47 WBC (3.98-10.04) K/mm3 RBC (3.98-5.22) M/mm3 Hgb (11.2-15.7) gm/dl Hct (34.1-44.9) % MCV (79.4-94.8) fl MCH (25.6-32.2) pg MCHC (32.2-35.5) g/dl RDW Std Deviation (36.4-46.3) fL Plt Count (182-369) K/mm3 MPV (9.4-12.3) fl Neut % (Auto) (34.0-71.1) % Lymph % (Auto) (19.3-51.7) % [place] % (Auto) (4.7-12.5) % Eos % (Auto) (0.7-5.8) Baso % (Auto) (0.1-1.2) % Neut # (Auto) (1.56-6.13) K/mm3 Lymph # (Auto) (1.18-3.74) K/mm3 [place] # (Auto) (0.24-0.36) K/mm3 Eos # (Auto) (0.04-0.36) K/mm3 Baso # (Auto) (0.01-0.08) K/mm3 PT (9.7-12.0) SECONDS INR Sodium (136-145) mEq/L Potassium (3.5-5.1) mEq/L Chloride (98-107) mEq/L Carbon Dioxide (21-32) mEq/L Anion Gap (5-15) BUN (7-18) mg/dL Creatinine (0.55-1.02) mg/dL Est Cr Clr Drug Dosing mL/min Estimated GFR (MDRD) (>60) mL/min BUN/Creatinine Ratio (14-18) Glucose (83-115) mg/dL POC Glucose (83-110) mg/dL Hemoglobin A1c ( - 5.6) % Calcium (8.5-10.1) mg/dL Magnesium (1.8-2.4) mg/dl Total Bilirubin (0.2-1.0) mg/dL AST (15-37) U/L ALT (14-59) U/L Alkaline Phosphatase (46-116) U/L Troponin I < 0.017 (0.00-0.056) ng/mL C-Reactive Protein (<1.0) mg/dL NT-Pro-B Natriuret Pep 2411 H (0-450) pg/mL Total Protein (6.4-8.2) g/dl Albumin (3.4-5.0) g/dl Globulin gm/dL Albumin/Globulin Ratio (1-2) Urine Color (Yellow) Urine Appearance (Clear) Urine pH (5.0-8.0) Ur Specific [place] (1.005-1.030) Urine Protein (Negative) Urine Glucose (UA) (Negative) Urine Ketones (Negative) Urine Occult Blood (Negative) Urine Nitrite (Negative) Urine Bilirubin (Negative) Urine Urobilinogen (0.2-1.0) Ur Leukocyte Esterase (Negative) U Hyaline Cast (Auto) (0-5) /lpf Urine RBC (0-5) /hpf Urine WBC (0-5) /hpf Ur Epithelial Cells (0-5) /hpf Urine Bacteria (FEW) /hpf Urine Mucus (FEW) /hpf Influenza Type A RNA (NEGATIVE) Influenza Type B RNA (NEGATIVE) SARS-CoV-2 RNA (RISHI) (NEGATIVE) MRSA (PCR) Negative 06/19/20 06/19/20 06/20/20 Range/Units 22:34 23:21 06:15 WBC 5.74 (3.98-10.04) K/mm3 RBC 3.75 L (3.98-5.22) M/mm3 Hgb 12.0 (11.2-15.7) gm/dl Hct 36.7 (34.1-44.9) % MCV 97.9 H (79.4-94.8) fl MCH 32.0 (25.6-32.2) pg MCHC 32.7 (32.2-35.5) g/dl RDW Std Deviation 47.9 H (36.4-46.3) fL Plt Count 160 L (182-369) K/mm3 MPV 9.3 L (9.4-12.3) fl Neut % (Auto) 58.1 (34.0-71.1) % Lymph % (Auto) 25.3 (19.3-51.7) % [place] % (Auto) 12.9 H (4.7-12.5) % Eos % (Auto) 3.3 (0.7-5.8) Baso % (Auto) 0.2 (0.1-1.2) % Neut # (Auto) 3.34 (1.56-6.13) K/mm3 Lymph # (Auto) 1.45 (1.18-3.74) K/mm3 [place] # (Auto) 0.74 H (0.24-0.36) K/mm3 Eos # (Auto) 0.19 (0.04-0.36) K/mm3 Baso # (Auto) 0.01 (0.01-0.08) K/mm3 PT (9.7-12.0) SECONDS INR Sodium (136-145) mEq/L Potassium (3.5-5.1) mEq/L Chloride (98-107) mEq/L Carbon Dioxide (21-32) mEq/L Anion Gap (5-15) BUN (7-18) mg/dL Creatinine (0.55-1.02) mg/dL Est Cr Clr Drug Dosing mL/min Estimated GFR (MDRD) (>60) mL/min BUN/Creatinine Ratio (14-18) Glucose (83-115) mg/dL POC Glucose 99 (83-110) mg/dL Hemoglobin A1c ( - 5.6) % Calcium (8.5-10.1) mg/dL Magnesium (1.8-2.4) mg/dl Total Bilirubin (0.2-1.0) mg/dL AST (15-37) U/L ALT (14-59) U/L Alkaline Phosphatase (46-116) U/L Troponin I < 0.017 (0.00-0.056) ng/mL C-Reactive Protein (<1.0) mg/dL NT-Pro-B Natriuret Pep (0-450) pg/mL Total Protein (6.4-8.2) g/dl Albumin (3.4-5.0) g/dl Globulin gm/dL Albumin/Globulin Ratio (1-2) Urine Color (Yellow) Urine Appearance (Clear) Urine pH (5.0-8.0) Ur Specific [place] (1.005-1.030) Urine Protein (Negative) Urine Glucose (UA) (Negative) Urine Ketones (Negative) Urine Occult Blood (Negative) Urine Nitrite (Negative) Urine Bilirubin (Negative) Urine Urobilinogen (0.2-1.0) Ur Leukocyte Esterase (Negative) U Hyaline Cast (Auto) (0-5) /lpf Urine RBC (0-5) /hpf Urine WBC (0-5) /hpf Ur Epithelial Cells (0-5) /hpf Urine Bacteria (FEW) /hpf Urine Mucus (FEW) /hpf Influenza Type A RNA (NEGATIVE) Influenza Type B RNA (NEGATIVE) SARS-CoV-2 RNA (RISHI) (NEGATIVE) MRSA (PCR) 06/20/20 06/20/20 Range/Units 06:15 06:27 WBC (3.98-10.04) K/mm3 RBC (3.98-5.22) M/mm3 Hgb (11.2-15.7) gm/dl Hct (34.1-44.9) % MCV (79.4-94.8) fl MCH (25.6-32.2) pg MCHC (32.2-35.5) g/dl RDW Std Deviation (36.4-46.3) fL Plt Count (182-369) K/mm3 MPV (9.4-12.3) fl Neut % (Auto) (34.0-71.1) % Lymph % (Auto) (19.3-51.7) % [place] % (Auto) (4.7-12.5) % Eos % (Auto) (0.7-5.8) Baso % (Auto) (0.1-1.2) % Neut # (Auto) (1.56-6.13) K/mm3 Lymph # (Auto) (1.18-3.74) K/mm3 [place] # (Auto) (0.24-0.36) K/mm3 Eos # (Auto) (0.04-0.36) K/mm3 Baso # (Auto) (0.01-0.08) K/mm3 PT (9.7-12.0) SECONDS INR Sodium 145 (136-145) mEq/L Potassium 2.8 L (3.5-5.1) mEq/L Chloride 105 (98-107) mEq/L Carbon Dioxide 32 (21-32) mEq/L Anion Gap 10.8 (5-15) BUN 14 (7-18) mg/dL Creatinine 1.1 H (0.55-1.02) mg/dL Est Cr Clr Drug Dosing 31.70 mL/min Estimated GFR (MDRD) 47 (>60) mL/min BUN/Creatinine Ratio 12.7 L (14-18) Glucose 99 (83-115) mg/dL POC Glucose 101 (83-110) mg/dL Hemoglobin A1c ( - 5.6) % Calcium 9.1 (8.5-10.1) mg/dL Magnesium (1.8-2.4) mg/dl Total Bilirubin 0.8 (0.2-1.0) mg/dL AST 25 (15-37) U/L ALT 25 (14-59) U/L Alkaline Phosphatase 39 L (46-116) U/L Troponin I (0.00-0.056) ng/mL C-Reactive Protein (<1.0) mg/dL NT-Pro-B Natriuret Pep (0-450) pg/mL Total Protein 5.9 L (6.4-8.2) g/dl Albumin 2.6 L (3.4-5.0) g/dl Globulin 3.3 gm/dL Albumin/Globulin Ratio 0.8 L (1-2) Urine Color (Yellow) Urine Appearance (Clear) Urine pH (5.0-8.0) Ur Specific [place] (1.005-1.030) Urine Protein (Negative) Urine Glucose (UA) (Negative) Urine Ketones (Negative) Urine Occult Blood (Negative) Urine Nitrite (Negative) Urine Bilirubin (Negative) Urine Urobilinogen (0.2-1.0) Ur Leukocyte Esterase (Negative) U Hyaline Cast (Auto) (0-5) /lpf Urine RBC (0-5) /hpf Urine WBC (0-5) /hpf Ur Epithelial Cells (0-5) /hpf Urine Bacteria (FEW) /hpf Urine Mucus (FEW) /hpf Influenza Type A RNA (NEGATIVE) Influenza Type B RNA (NEGATIVE) SARS-CoV-2 RNA (RISHI) (NEGATIVE) MRSA (PCR) Med Orders - Current: Current Medications Acetaminophen (Acetaminophen 325 Mg Tab) 650 mg PO Q6H PRN PRN Reason: Pain (Mild 1-3)/fever Hydrocodone Bitart/Acetaminophen (Acetaminophen/Hydrocodone 325-5 Mg Tab) 1 tab PO Q6H PRN PRN Reason: Pain (moderate 4-6) Albuterol/Ipratropium (Albuterol/Ipratropium 3.0-0.5 Mg/3 Ml Neb Soln) 3 ml NEB Q4H PRN PRN Reason: Shortness Of Breath/wheezing Aspirin (Aspirin 325 Mg Tab.Ec) 325 mg PO BEDTIME [facility] Last Admin: 06/19/20 21:35 Dose: 325 mg Documented by: Cholecalciferol (Cholecalciferol (Vitamin D3) 25 Mcg Tab) 25 mcg PO DAILY [facility] Last Admin: 06/20/20 09:09 Dose: 25 mcg Documented by: Donepezil HCl (Donepezil 10 Mg Tab) 10 mg PO BEDTIME [facility] Last Admin: 06/19/20 21:35 Dose: 10 mg Documented by: Enoxaparin Sodium (Enoxaparin 40 Mg/0.4 Ml Syringe) 40 mg SUBCUT DAILY [facility] Hydralazine HCl (Hydralazine 20 Mg/Ml Sdv) 10 mg IVPUSH Q4H PRN PRN Reason: Hypertension Promethazine HCl 12.5 mg/ (Sodium Chloride) 50.5 mls @ 100 mls/hr IV Q6H PRN PRN Reason: Nausea/Vomiting Insulin Human Lispro (Insulin Lispro 100 Unit/Ml) 0 unit SUBCUT TIDMEALS [facility]; Protocol Last Admin: 06/20/20 07:42 Dose: Not Given Documented by: Isosorbide Mononitrate (Isosorbide Mononitrate 30 Mg Tab.Er) 15 mg PO DAILY [facility] Last Admin: 06/20/20 09:07 Dose: 15 mg Documented by: Levothyroxine Sodium (Levothyroxine 112 Mcg Tab) 112 mcg PO DAILY [facility] Last Admin: 06/20/20 09:09 Dose: 112 mcg Documented by: Lorazepam (Lorazepam 2 Mg/Ml Sdv) 1 mg IV Q6H PRN PRN Reason: Agitation Metoprolol Succinate (Metoprolol Succinate 25 Mg Tab.Er) 25 mg PO DAILY [facility] Last Admin: 06/20/20 09:08 Dose: Not Given Documented by: Oral Electrolytes (Sodium Chloride/Potassium Chloride Tab) 1 each PO Q2H [facility] Stop: 06/20/20 16:16 Last Admin: 06/20/20 09:09 Dose: 1 each Documented by: Quetiapine Fumarate (Quetiapine 25 Mg Tab) 12.5 mg PO BID PRN PRN Reason: Agitation Rosuvastatin Calcium (Rosuvastatin 10 Mg Tab) 40 mg PO BEDTIME [facility] Last Admin: 06/19/20 21:35 Dose: 40 mg Documented by: Sodium Chloride (Sodium Chloride 0.9% 10 Ml Syringe) 10 ml FLUSH ASDIRECTED PRN PRN Reason: Keep Vein Open Last Admin: 06/19/20 15:12 Dose: 10 ml Documented by: Discontinued Medications Heparin Sodium (Porcine) (Heparin Sodium 5,000 Units/Ml Vial) 5,000 units SUBCUT Q8H [facility] Last Admin: 06/20/20 09:22 Dose: Not Given Documented by: Heparin Sodium (Porcine) (Heparin Sodium 5,000 Units/Ml Vial) 5,000 units SUBCUT Q8H [facility] Last Admin: 06/20/20 06:24 Dose: 5,000 units Documented by: Lactated Ringer's (Ringers, Lactated) 1,000 mls @ 60 mls/hr IV ASDIRECTED [facility] Last Admin: 06/19/20 21:40 Dose: 60 mls/hr Documented by: Metoprolol Succinate (Metoprolol Succinate 50 Mg Tab.Er) 50 mg PO DAILY [facility] Metoprolol Succinate (Metoprolol Succinate 50 Mg Tab.Er) 25 mg PO DAILY [facility] - Exam Physical Findings Comments:: General: Alert, Cooperative HEENT: Conjunctiva Clear, EOMI, Pupils Equal, Pupils Reactive Neck: Supple, Full Range of Motion Lungs: Clear to Auscultation, Normal Respiratory Effort Cardiovascular: Normal S1, Normal S2 GI/Abdominal Exam: Normal Bowel Sounds, Soft, Non-Tender, No Organomegaly, No Distention Extremities: Normal Inspection, Normal Range of Motion, Non-Tender, No Pedal Edema Skin: Warm, Dry, Intact Neurological: Cranial Nerves Intact, Reflexes Equal Bilateral, Strength Equal Bilateral, Normal Speech, Sensation Intact Neuro Extensive - Mental Status: Alert, Normal Mood/Affect Neuro Extensive - Motor, Sensory, Reflexes: CN II-XII Intact, Normal Reflexes Psychiatric: Alert, Normal Affect, Normal Mood - Patient Data Lab Results Last 24 hrs: Laboratory Results - last 24 hr 06/19/20 06/19/20 06/19/20 Range/Units 14:20 14:24 14:24 WBC 6.99 (3.98-10.04) K/mm3 RBC 4.12 (3.98-5.22) M/mm3 Hgb 13.1 D (11.2-15.7) gm/dl Hct 40.1 (34.1-44.9) % MCV 97.3 H D (79.4-94.8) fl MCH 31.8 (25.6-32.2) pg MCHC 32.7 (32.2-35.5) g/dl RDW Std Deviation 47.2 H (36.4-46.3) fL Plt Count 210 (182-369) K/mm3 MPV 9.1 L (9.4-12.3) fl Neut % (Auto) 71.5 H (34.0-71.1) % Lymph % (Auto) 17.2 L (19.3-51.7) % [place] % (Auto) 10.3 (4.7-12.5) % Eos % (Auto) 0.6 L (0.7-5.8) Baso % (Auto) 0.3 (0.1-1.2) % Neut # (Auto) 5.00 (1.56-6.13) K/mm3 Lymph # (Auto) 1.20 (1.18-3.74) K/mm3 [place] # (Auto) 0.72 H (0.24-0.36) K/mm3 Eos # (Auto) 0.04 (0.04-0.36) K/mm3 Baso # (Auto) 0.02 (0.01-0.08) K/mm3 PT (9.7-12.0) SECONDS INR Sodium 143 (136-145) mEq/L Potassium 3.5 (3.5-5.1) mEq/L Chloride 102 (98-107) mEq/L Carbon Dioxide 32 (21-32) mEq/L Anion Gap 12.5 (5-15) BUN 13 (7-18) mg/dL Creatinine 1.2 H (0.55-1.02) mg/dL Est Cr Clr Drug Dosing 29.06 mL/min Estimated GFR (MDRD) 43 (>60) mL/min BUN/Creatinine Ratio 10.8 L (14-18) Glucose 135 H (83-115) mg/dL POC Glucose (83-110) mg/dL Hemoglobin A1c 6.2 H ( - 5.6) % Calcium 9.2 (8.5-10.1) mg/dL Magnesium 2.0 (1.8-2.4) mg/dl Total Bilirubin 0.8 (0.2-1.0) mg/dL AST 29 (15-37) U/L ALT 37 (14-59) U/L Alkaline Phosphatase 45 L (46-116) U/L Troponin I (0.00-0.056) ng/mL C-Reactive Protein 0.4 (<1.0) mg/dL NT-Pro-B Natriuret Pep (0-450) pg/mL Total Protein 6.9 (6.4-8.2) g/dl Albumin 3.1 L (3.4-5.0) g/dl Globulin 3.8 gm/dL Albumin/Globulin Ratio 0.8 L (1-2) Urine Color (Yellow) Urine Appearance (Clear) Urine pH (5.0-8.0) Ur Specific [place] (1.005-1.030) Urine Protein (Negative) Urine Glucose (UA) (Negative) Urine Ketones (Negative) Urine Occult Blood (Negative) Urine Nitrite (Negative) Urine Bilirubin (Negative) Urine Urobilinogen (0.2-1.0) Ur Leukocyte Esterase (Negative) U Hyaline Cast (Auto) (0-5) /lpf Urine RBC (0-5) /hpf Urine WBC (0-5) /hpf Ur Epithelial Cells (0-5) /hpf Urine Bacteria (FEW) /hpf Urine Mucus (FEW) /hpf Influenza Type A RNA (NEGATIVE) Influenza Type B RNA (NEGATIVE) SARS-CoV-2 RNA (RISHI) (NEGATIVE) MRSA (PCR) 06/19/20 06/19/20 06/19/20 Range/Units 14:55 15:05 17:15 WBC (3.98-10.04) K/mm3 RBC (3.98-5.22) M/mm3 Hgb (11.2-15.7) gm/dl Hct (34.1-44.9) % MCV (79.4-94.8) fl MCH (25.6-32.2) pg MCHC (32.2-35.5) g/dl RDW Std Deviation (36.4-46.3) fL Plt Count (182-369) K/mm3 MPV (9.4-12.3) fl Neut % (Auto) (34.0-71.1) % Lymph % (Auto) (19.3-51.7) % [place] % (Auto) (4.7-12.5) % Eos % (Auto) (0.7-5.8) Baso % (Auto) (0.1-1.2) % Neut # (Auto) (1.56-6.13) K/mm3 Lymph # (Auto) (1.18-3.74) K/mm3 [place] # (Auto) (0.24-0.36) K/mm3 Eos # (Auto) (0.04-0.36) K/mm3 Baso # (Auto) (0.01-0.08) K/mm3 PT 11.9 (9.7-12.0) SECONDS INR 1.11 Sodium (136-145) mEq/L Potassium (3.5-5.1) mEq/L Chloride (98-107) mEq/L Carbon Dioxide (21-32) mEq/L Anion Gap (5-15) BUN (7-18) mg/dL Creatinine (0.55-1.02) mg/dL Est Cr Clr Drug Dosing mL/min Estimated GFR (MDRD) (>60) mL/min BUN/Creatinine Ratio (14-18) Glucose (83-115) mg/dL POC Glucose (83-110) mg/dL Hemoglobin A1c ( - 5.6) % Calcium (8.5-10.1) mg/dL Magnesium (1.8-2.4) mg/dl Total Bilirubin (0.2-1.0) mg/dL AST (15-37) U/L ALT (14-59) U/L Alkaline Phosphatase (46-116) U/L Troponin I (0.00-0.056) ng/mL C-Reactive Protein (<1.0) mg/dL NT-Pro-B Natriuret Pep (0-450) pg/mL Total Protein (6.4-8.2) g/dl Albumin (3.4-5.0) g/dl Globulin gm/dL Albumin/Globulin Ratio (1-2) Urine Color Yellow (Yellow) Urine Appearance Clear (Clear) Urine pH 6.5 (5.0-8.0) Ur Specific [place] 1.020 (1.005-1.030) Urine Protein 1+ H (Negative) Urine Glucose (UA) Negative (Negative) Urine Ketones Negative (Negative) Urine Occult Blood Negative (Negative) Urine Nitrite Negative (Negative) Urine Bilirubin Negative (Negative) Urine Urobilinogen 1.0 (0.2-1.0) Ur Leukocyte Esterase Negative (Negative) U Hyaline Cast (Auto) 0-5 (0-5) /lpf Urine RBC 0-5 (0-5) /hpf Urine WBC 0-5 (0-5) /hpf Ur Epithelial Cells 0-5 (0-5) /hpf Urine Bacteria Few (FEW) /hpf Urine Mucus Few (FEW) /hpf Influenza Type A RNA Negative (NEGATIVE) Influenza Type B RNA Negative (NEGATIVE) SARS-CoV-2 RNA (RISHI) Negative (NEGATIVE) MRSA (PCR) 06/19/20 06/19/20 06/19/20 Range/Units 17:15 17:15 21:47 WBC (3.98-10.04) K/mm3 RBC (3.98-5.22) M/mm3 Hgb (11.2-15.7) gm/dl Hct (34.1-44.9) % MCV (79.4-94.8) fl MCH (25.6-32.2) pg MCHC (32.2-35.5) g/dl RDW Std Deviation (36.4-46.3) fL Plt Count (182-369) K/mm3 MPV (9.4-12.3) fl Neut % (Auto) (34.0-71.1) % Lymph % (Auto) (19.3-51.7) % [place] % (Auto) (4.7-12.5) % Eos % (Auto) (0.7-5.8) Baso % (Auto) (0.1-1.2) % Neut # (Auto) (1.56-6.13) K/mm3 Lymph # (Auto) (1.18-3.74) K/mm3 [place] # (Auto) (0.24-0.36) K/mm3 Eos # (Auto) (0.04-0.36) K/mm3 Baso # (Auto) (0.01-0.08) K/mm3 PT (9.7-12.0) SECONDS INR Sodium (136-145) mEq/L Potassium (3.5-5.1) mEq/L Chloride (98-107) mEq/L Carbon Dioxide (21-32) mEq/L Anion Gap (5-15) BUN (7-18) mg/dL Creatinine (0.55-1.02) mg/dL Est Cr Clr Drug Dosing mL/min Estimated GFR (MDRD) (>60) mL/min BUN/Creatinine Ratio (14-18) Glucose (83-115) mg/dL POC Glucose (83-110) mg/dL Hemoglobin A1c ( - 5.6) % Calcium (8.5-10.1) mg/dL Magnesium (1.8-2.4) mg/dl Total Bilirubin (0.2-1.0) mg/dL AST (15-37) U/L ALT (14-59) U/L Alkaline Phosphatase (46-116) U/L Troponin I < 0.017 (0.00-0.056) ng/mL C-Reactive Protein (<1.0) mg/dL NT-Pro-B Natriuret Pep 2411 H (0-450) pg/mL Total Protein (6.4-8.2) g/dl Albumin (3.4-5.0) g/dl Globulin gm/dL Albumin/Globulin Ratio (1-2) Urine Color (Yellow) Urine Appearance (Clear) Urine pH (5.0-8.0) Ur Specific [place] (1.005-1.030) Urine Protein (Negative) Urine Glucose (UA) (Negative) Urine Ketones (Negative) Urine Occult Blood (Negative) Urine Nitrite (Negative) Urine Bilirubin (Negative) Urine Urobilinogen (0.2-1.0) Ur Leukocyte Esterase (Negative) U Hyaline Cast (Auto) (0-5) /lpf Urine RBC (0-5) /hpf Urine WBC (0-5) /hpf Ur Epithelial Cells (0-5) /hpf Urine Bacteria (FEW) /hpf Urine Mucus (FEW) /hpf Influenza Type A RNA (NEGATIVE) Influenza Type B RNA (NEGATIVE) SARS-CoV-2 RNA (RISHI) (NEGATIVE) MRSA (PCR) Negative 06/19/20 06/19/20 06/20/20 Range/Units 22:34 23:21 06:15 WBC 5.74 (3.98-10.04) K/mm3 RBC 3.75 L (3.98-5.22) M/mm3 Hgb 12.0 (11.2-15.7) gm/dl Hct 36.7 (34.1-44.9) % MCV 97.9 H (79.4-94.8) fl MCH 32.0 (25.6-32.2) pg MCHC 32.7 (32.2-35.5) g/dl RDW Std Deviation 47.9 H (36.4-46.3) fL Plt Count 160 L (182-369) K/mm3 MPV 9.3 L (9.4-12.3) fl Neut % (Auto) 58.1 (34.0-71.1) % Lymph % (Auto) 25.3 (19.3-51.7) % [place] % (Auto) 12.9 H (4.7-12.5) % Eos % (Auto) 3.3 (0.7-5.8) Baso % (Auto) 0.2 (0.1-1.2) % Neut # (Auto) 3.34 (1.56-6.13) K/mm3 Lymph # (Auto) 1.45 (1.18-3.74) K/mm3 [place] # (Auto) 0.74 H (0.24-0.36) K/mm3 Eos # (Auto) 0.19 (0.04-0.36) K/mm3 Baso # (Auto) 0.01 (0.01-0.08) K/mm3 PT (9.7-12.0) SECONDS INR Sodium (136-145) mEq/L Potassium (3.5-5.1) mEq/L Chloride (98-107) mEq/L Carbon Dioxide (21-32) mEq/L Anion Gap (5-15) BUN (7-18) mg/dL Creatinine (0.55-1.02) mg/dL Est Cr Clr Drug Dosing mL/min Estimated GFR (MDRD) (>60) mL/min BUN/Creatinine Ratio (14-18) Glucose (83-115) mg/dL POC Glucose 99 (83-110) mg/dL Hemoglobin A1c ( - 5.6) % Calcium (8.5-10.1) mg/dL Magnesium (1.8-2.4) mg/dl Total Bilirubin (0.2-1.0) mg/dL AST (15-37) U/L ALT (14-59) U/L Alkaline Phosphatase (46-116) U/L Troponin I < 0.017 (0.00-0.056) ng/mL C-Reactive Protein (<1.0) mg/dL NT-Pro-B Natriuret Pep (0-450) pg/mL Total Protein (6.4-8.2) g/dl Albumin (3.4-5.0) g/dl Globulin gm/dL Albumin/Globulin Ratio (1-2) Urine Color (Yellow) Urine Appearance (Clear) Urine pH (5.0-8.0) Ur Specific [place] (1.005-1.030) Urine Protein (Negative) Urine Glucose (UA) (Negative) Urine Ketones (Negative) Urine Occult Blood (Negative) Urine Nitrite (Negative) Urine Bilirubin (Negative) Urine Urobilinogen (0.2-1.0) Ur Leukocyte Esterase (Negative) U Hyaline Cast (Auto) (0-5) /lpf Urine RBC (0-5) /hpf Urine WBC (0-5) /hpf Ur Epithelial Cells (0-5) /hpf Urine Bacteria (FEW) /hpf Urine Mucus (FEW) /hpf Influenza Type A RNA (NEGATIVE) Influenza Type B RNA (NEGATIVE) SARS-CoV-2 RNA (RISHI) (NEGATIVE) MRSA (PCR) 06/20/20 06/20/20 Range/Units 06:15 06:27 WBC (3.98-10.04) K/mm3 RBC (3.98-5.22) M/mm3 Hgb (11.2-15.7) gm/dl Hct (34.1-44.9) % MCV (79.4-94.8) fl MCH (25.6-32.2) pg MCHC (32.2-35.5) g/dl RDW Std Deviation (36.4-46.3) fL Plt Count (182-369) K/mm3 MPV (9.4-12.3) fl Neut % (Auto) (34.0-71.1) % Lymph % (Auto) (19.3-51.7) % [place] % (Auto) (4.7-12.5) % Eos % (Auto) (0.7-5.8) Baso % (Auto) (0.1-1.2) % Neut # (Auto) (1.56-6.13) K/mm3 Lymph # (Auto) (1.18-3.74) K/mm3 [place] # (Auto) (0.24-0.36) K/mm3 Eos # (Auto) (0.04-0.36) K/mm3 Baso # (Auto) (0.01-0.08) K/mm3 PT (9.7-12.0) SECONDS INR Sodium 145 (136-145) mEq/L Potassium 2.8 L (3.5-5.1) mEq/L Chloride 105 (98-107) mEq/L Carbon Dioxide 32 (21-32) mEq/L Anion Gap 10.8 (5-15) BUN 14 (7-18) mg/dL Creatinine 1.1 H (0.55-1.02) mg/dL Est Cr Clr Drug Dosing 31.70 mL/min Estimated GFR (MDRD) 47 (>60) mL/min BUN/Creatinine Ratio 12.7 L (14-18) Glucose 99 (83-115) mg/dL POC Glucose 101 (83-110) mg/dL Hemoglobin A1c ( - 5.6) % Calcium 9.1 (8.5-10.1) mg/dL Magnesium (1.8-2.4) mg/dl Total Bilirubin 0.8 (0.2-1.0) mg/dL AST 25 (15-37) U/L ALT 25 (14-59) U/L Alkaline Phosphatase 39 L (46-116) U/L Troponin I (0.00-0.056) ng/mL C-Reactive Protein (<1.0) mg/dL NT-Pro-B Natriuret Pep (0-450) pg/mL Total Protein 5.9 L (6.4-8.2) g/dl Albumin 2.6 L (3.4-5.0) g/dl Globulin 3.3 gm/dL Albumin/Globulin Ratio 0.8 L (1-2) Urine Color (Yellow) Urine Appearance (Clear) Urine pH (5.0-8.0) Ur Specific [place] (1.005-1.030) Urine Protein (Negative) Urine Glucose (UA) (Negative) Urine Ketones (Negative) Urine Occult Blood (Negative) Urine Nitrite (Negative) Urine Bilirubin (Negative) Urine Urobilinogen (0.2-1.0) Ur Leukocyte Esterase (Negative) U Hyaline Cast (Auto) (0-5) /lpf Urine RBC (0-5) /hpf Urine WBC (0-5) /hpf Ur Epithelial Cells (0-5) /hpf Urine Bacteria (FEW) /hpf Urine Mucus (FEW) /hpf Influenza Type A RNA (NEGATIVE) Influenza Type B RNA (NEGATIVE) SARS-CoV-2 RNA (RISHI) (NEGATIVE) MRSA (PCR) Result Diagrams: 06/20/20 06:15 06/20/20 06:15 Sepsis Event Note - Evaluation Sepsis Screening Result: No Definite Risk - Focused Exam Vital Signs: Vital Signs Temp Pulse Resp BP Pulse Ox 06/20/20 09:08 58 L 92/56 L 06/20/20 09:07 92/56 L 06/20/20 08:14 36.4 C 58 L 18 92/56 L 97 06/20/20 03:55 36.8 C 65 16 112/51 L 96 - Problem List Review Problem List Initiated/Reviewed/Updated: Yes - My Orders Last 24 Hours: My Active Orders 06/19/20 16:37 Patient Status [ADT] Routine Bedrest Bedside Commode [RC] ASDIRECTED Oxygen Therapy [RC] PRN VTE/DVT Education [RC] DAILY Vital Signs [RC] Q4HR Acetaminophen [TylenoL] 650 mg PO Q6H PRN Acetaminophen/HYDROcodone [[place] 325-5 MG] 1 tab PO Q6H PRN Albuterol/Ipratropium [DuoNeb 3.0-0.5 MG/3 ML] 3 ml NEB Q4H PRN LORazepam [Ativan] 1 mg IV Q6H PRN Promethazine [Phenergan] 12.5 mg Sodium Chloride 0.9% [Normal Saline] 50 ml IV Q6H Resuscitation Status Routine 06/19/20 16:39 Cardiac Monitoring [RC] CONTINUOUS Intake and Output [RC] 04,16 06/19/20 16:44 RT Aerosol Therapy [RC] ASDIRECTED Consult to Homicide Investigator [CONS] Routine OT Evaluation and Treatment [CONS] Routine PT Evaluation and Treatment [CONS] Routine 06/19/20 16:51 hydrALAZINE [Apresoline] 10 mg IVPUSH Q4H PRN 06/19/20 16:53 QUEtiapine [SEROqueL] 12.5 mg PO BID PRN 06/19/20 17:54 PROCALCITONIN [REF] Routine 06/19/20 19:19 Insulin Lispro [HumaLOG] See Protocol SUBCUT TIDMEALS 06/19/20 20:01 Blood Glucose Check, Bedside [RC] QIDACANDBED 06/19/20 21:00 Aspirin [Ecotrin] 325 mg PO BEDTIME Donepezil [Aricept] 10 mg PO BEDTIME Rosuvastatin [Crestor] 40 mg PO BEDTIME 06/20/20 08:15 Sodium Chloride/KCl [Thermotabs] 1 each PO Q2H 06/20/20 09:00 Cholecalciferol (Vitamin D3) [Vitamin D3] 25 mcg PO DAILY Isosorbide Mononitrate [Imdur] 15 mg PO DAILY Levothyroxine 112 mcg PO DAILY Metoprolol Succinate [Toprol XL] 25 mg PO DAILY 06/20/20 Lunch [employer] Diet [DIET] Enoxaparin [Lovenox] 40 mg SUBCUT DAILY 06/21/20 05:00 CBC WITH AUTO DIFF [HEME] DAILY COMPREHENSIVE METABOLIC PN,CMP [CHEM] DAILY 06/22/20 05:00 CBC WITH AUTO DIFF [HEME] DAILY COMPREHENSIVE METABOLIC PN,CMP [CHEM] DAILY 06/23/20 05:00 CBC WITH AUTO DIFF [HEME] DAILY COMPREHENSIVE METABOLIC PN,CMP [CHEM] DAILY 06/23/20 07:00 CBC W/O DIFF,HEMOGRAM [HEME] MOTH@0700 06/24/20 05:00 CBC WITH AUTO DIFF [HEME] DAILY COMPREHENSIVE METABOLIC PN,CMP [CHEM] DAILY 06/25/20 05:00 CBC WITH AUTO DIFF [HEME] DAILY COMPREHENSIVE METABOLIC PN,CMP [CHEM] DAILY 06/27/20 07:00 CBC W/O DIFF,HEMOGRAM [HEME] MOTH@0700 06/30/20 07:00 CBC W/O DIFF,HEMOGRAM [HEME] MOTH@0700 07/04/20 07:00 CBC W/O DIFF,HEMOGRAM [HEME] MOTH@0700 07/07/20 07:00 CBC W/O DIFF,HEMOGRAM [HEME] MOTH@0700 - Plan Plan:: Patient is an 85-year-old female with a history of COPD status post CABG, prediabetes, hypertension, and hypothyroidism who was brought to the ER from assisted living due to generalized weakness and diarrhea. Assessment and plan: Diarrhea Etiology unknown Improved/resolved History of use of antibiotics 2 months ago for UTI C. difficile pending Stool culture pending Discontinued IV fluid due to elevation of proBNP/CHF Generalized weakness Could be due to dehydration from diarrhea. No evidence of infection. No focal neurological deficits PT OT CAD, s/p CABG Continue home medication aspirin and statin Prediabetes Hemoglobin A1c 6.2 Insulin sliding scale HTN Continue home medication Imdur and metoprolol Hydralazine as needed ADAMA or ADAMA on CKD, creatinine 0.9 on 04/19/2015 Creatinine 1.1 Avoid nephrotoxic meds Intake and output Repeat the renal function the morning Dehydration Resolved Self care deficit As per daughter, patient has lost 40 to 6 pounds over the past 6 months Possible dementia PT OT Dietitian consult Hypothyroidism Continue home medication Synthroid Thrombocytopenia No evidence of bleeding Repeat a CBC in morning Elelvation of proBNP 2411 troponin negative x 2 Echo Electrolytes imbalance Replaced and repeat it DVT prophylaxis: Lovenox CODE STATUS: DNR/DNI. Discussed with the patient and the daughter about the CODE STATUS. Both agreed with DNR and DNI. as per daughter, patient has a will-DNR/DNI. Disposition: PT OT
[2020-06-20] MEDS: Potassium Chloride 20 MEQ Tab.ER PO SCH ×3 (11:50→21:14)
[2020-06-20] MEDS: Enoxaparin 40 MG/0.4 ML Syringe SUBCUT SCH (11:50)
[2020-06-20] MEDS: Aspirin 325 MG Tab.EC PO SCH (21:14)
[2020-06-20] MEDS: Rosuvastatin 10 MG Tab PO SCH (21:14)
[2020-06-20] MEDS: Donepezil 10 MG Tab PO SCH (21:14)
[2020-06-21] MEDS ORDERED: Lactated Ringers 1,000 ML IV SCH (08:30)
[2020-06-21] MEDS: Levothyroxine 112 MCG Tab PO SCH (08:54)
[2020-06-21] MEDS: Cholecalciferol (Vitamin D3) 25 MCG Tab PO SCH (08:54)
[2020-06-21] MEDS: Enoxaparin 40 MG/0.4 ML Syringe SUBCUT SCH (08:54)
[2020-06-21] MEDS ORDERED: amLODIPine 2.5 MG Tab PO SCH (09:00)
--- NOTE | 2020-06-21 12:24 | PCM.PN ---
- General Info Date of Service: 06/21/20 Admission Dx/Problem (Free Text): Admission Diagnosis/Problem Admission Diagnosis/Problem Diarrhea Subjective Update: Patient is an 85-year-old female with a history of COPD status post CABG, prediabetes, hypertension, and hypothyroidism who was brought to the ER from assisted living due to generalized weakness and diarrhea. Patient denies having diarrhea. Denies nausea or vomiting. Heart rate is low 52 and blood pressure is soft at times Platelets 160, creatinine 1.1 - Review of Systems Systems Review Comment:: General: Reports: Weakness, Fatigue, Decreased Appetite HEENT: Reports: No Symptoms Pulmonary: Reports: No Symptoms Cardiovascular: Reports: No Symptoms Gastrointestinal: Reports: Decreased Appetite, Genitourinary: Reports: No Symptoms Musculoskeletal: Reports: No Symptoms Skin: Reports: No Symptoms Psychiatric: Reports: No Symptoms Neurological: Reports: No Symptoms Hematologic/Lymphatic: Reports: No Symptoms Immunologic: Reports: No Symptoms - Patient Data Vitals - Most Recent: Last Vital Signs Temp 36.4 C 06/21/20 08:55 Pulse 83 06/21/20 08:55 Resp 18 06/21/20 08:55 BP 118/62 06/21/20 08:55 Pulse Ox 97 06/21/20 08:55 Weight - Most Recent: 74.525 kg I&O - Last 24 Hours: Intake & Output 06/20/20 06/21/20 06/21/20 22:59 06:59 14:59 Intake Total 1683 350 0 Output Total 550 400 Balance 1133 -50 0 Lab Results Last 24 Hours: Laboratory Results - last 24 hr 06/19/20 06/20/20 06/20/20 Range/Units 17:54 17:45 21:21 WBC (3.98-10.04) K/mm3 RBC (3.98-5.22) M/mm3 Hgb (11.2-15.7) gm/dl Hct (34.1-44.9) % MCV (79.4-94.8) fl MCH (25.6-32.2) pg MCHC (32.2-35.5) g/dl RDW Std Deviation (36.4-46.3) fL Plt Count (182-369) K/mm3 MPV (9.4-12.3) fl Neut % (Auto) (34.0-71.1) % Lymph % (Auto) (19.3-51.7) % [place] % (Auto) (4.7-12.5) % Eos % (Auto) (0.7-5.8) Baso % (Auto) (0.1-1.2) % Neut # (Auto) (1.56-6.13) K/mm3 Lymph # (Auto) (1.18-3.74) K/mm3 [place] # (Auto) (0.24-0.36) K/mm3 Eos # (Auto) (0.04-0.36) K/mm3 Baso # (Auto) (0.01-0.08) K/mm3 Sodium (136-145) mEq/L Potassium (3.5-5.1) mEq/L Chloride (98-107) mEq/L Carbon Dioxide (21-32) mEq/L Anion Gap (5-15) BUN (7-18) mg/dL Creatinine (0.55-1.02) mg/dL Est Cr Clr Drug Dosing mL/min Estimated GFR (MDRD) (>60) mL/min BUN/Creatinine Ratio (14-18) Glucose (83-115) mg/dL POC Glucose 107 116 H (83-110) mg/dL Calcium (8.5-10.1) mg/dL Total Bilirubin (0.2-1.0) mg/dL AST (15-37) U/L ALT (14-59) U/L Alkaline Phosphatase (46-116) U/L Total Protein (6.4-8.2) g/dl Albumin (3.4-5.0) g/dl Globulin gm/dL Albumin/Globulin Ratio (1-2) Procalcitonin 0.10 H ng/mL 06/21/20 06/21/20 06/21/20 Range/Units 04:43 04:43 06:20 WBC 4.92 (3.98-10.04) K/mm3 RBC 3.80 L (3.98-5.22) M/mm3 Hgb 11.9 (11.2-15.7) gm/dl Hct 37.4 (34.1-44.9) % MCV 98.4 H (79.4-94.8) fl MCH 31.3 (25.6-32.2) pg MCHC 31.8 L (32.2-35.5) g/dl RDW Std Deviation 49.3 H (36.4-46.3) fL Plt Count 160 L (182-369) K/mm3 MPV 9.8 (9.4-12.3) fl Neut % (Auto) 46.2 (34.0-71.1) % Lymph % (Auto) 37.4 (19.3-51.7) % [place] % (Auto) 13.4 H (4.7-12.5) % Eos % (Auto) 2.8 (0.7-5.8) Baso % (Auto) 0.2 (0.1-1.2) % Neut # (Auto) 2.27 (1.56-6.13) K/mm3 Lymph # (Auto) 1.84 (1.18-3.74) K/mm3 [place] # (Auto) 0.66 H (0.24-0.36) K/mm3 Eos # (Auto) 0.14 (0.04-0.36) K/mm3 Baso # (Auto) 0.01 (0.01-0.08) K/mm3 Sodium 143 (136-145) mEq/L Potassium 4.7 D (3.5-5.1) mEq/L Chloride 107 (98-107) mEq/L Carbon Dioxide 29 (21-32) mEq/L Anion Gap 11.7 (5-15) BUN 13 (7-18) mg/dL Creatinine 1.1 H (0.55-1.02) mg/dL Est Cr Clr Drug Dosing 31.93 mL/min Estimated GFR (MDRD) 47 (>60) mL/min BUN/Creatinine Ratio 11.8 L (14-18) Glucose 91 (83-115) mg/dL POC Glucose 105 (83-110) mg/dL Calcium 9.0 (8.5-10.1) mg/dL Total Bilirubin 0.6 (0.2-1.0) mg/dL AST 28 (15-37) U/L ALT 30 (14-59) U/L Alkaline Phosphatase 39 L (46-116) U/L Total Protein 5.7 L (6.4-8.2) g/dl Albumin 2.5 L (3.4-5.0) g/dl Globulin 3.2 gm/dL Albumin/Globulin Ratio 0.8 L (1-2) Procalcitonin ng/mL 06/21/20 Range/Units 10:39 WBC (3.98-10.04) K/mm3 RBC (3.98-5.22) M/mm3 Hgb (11.2-15.7) gm/dl Hct (34.1-44.9) % MCV (79.4-94.8) fl MCH (25.6-32.2) pg MCHC (32.2-35.5) g/dl RDW Std Deviation (36.4-46.3) fL Plt Count (182-369) K/mm3 MPV (9.4-12.3) fl Neut % (Auto) (34.0-71.1) % Lymph % (Auto) (19.3-51.7) % [place] % (Auto) (4.7-12.5) % Eos % (Auto) (0.7-5.8) Baso % (Auto) (0.1-1.2) % Neut # (Auto) (1.56-6.13) K/mm3 Lymph # (Auto) (1.18-3.74) K/mm3 [place] # (Auto) (0.24-0.36) K/mm3 Eos # (Auto) (0.04-0.36) K/mm3 Baso # (Auto) (0.01-0.08) K/mm3 Sodium (136-145) mEq/L Potassium (3.5-5.1) mEq/L Chloride (98-107) mEq/L Carbon Dioxide (21-32) mEq/L Anion Gap (5-15) BUN (7-18) mg/dL Creatinine (0.55-1.02) mg/dL Est Cr Clr Drug Dosing mL/min Estimated GFR (MDRD) (>60) mL/min BUN/Creatinine Ratio (14-18) Glucose (83-115) mg/dL POC Glucose 140 H (83-110) mg/dL Calcium (8.5-10.1) mg/dL Total Bilirubin (0.2-1.0) mg/dL AST (15-37) U/L ALT (14-59) U/L Alkaline Phosphatase (46-116) U/L Total Protein (6.4-8.2) g/dl Albumin (3.4-5.0) g/dl Globulin gm/dL Albumin/Globulin Ratio (1-2) Procalcitonin ng/mL Med Orders - Current: Current Medications Acetaminophen (Acetaminophen 325 Mg Tab) 650 mg PO Q6H PRN PRN Reason: Pain (Mild 1-3)/fever Hydrocodone Bitart/Acetaminophen (Acetaminophen/Hydrocodone 325-5 Mg Tab) 1 tab PO Q6H PRN PRN Reason: Pain (moderate 4-6) Albuterol/Ipratropium (Albuterol/Ipratropium 3.0-0.5 Mg/3 Ml Neb Soln) 3 ml NEB Q4H PRN PRN Reason: Shortness Of Breath/wheezing Amlodipine Besylate (Amlodipine 2.5 Mg Tab) 2.5 mg PO DAILY [facility] Last Admin: 06/21/20 08:55 Dose: 2.5 mg Documented by: Aspirin (Aspirin 325 Mg Tab.Ec) 325 mg PO BEDTIME [facility] Last Admin: 06/20/20 21:14 Dose: 325 mg Documented by: Cholecalciferol (Cholecalciferol (Vitamin D3) 25 Mcg Tab) 25 mcg PO DAILY [facility] Last Admin: 06/21/20 08:54 Dose: 25 mcg Documented by: Donepezil HCl (Donepezil 10 Mg Tab) 10 mg PO BEDTIME [facility] Last Admin: 06/20/20 21:14 Dose: 10 mg Documented by: Enoxaparin Sodium (Enoxaparin 40 Mg/0.4 Ml Syringe) 40 mg SUBCUT DAILY [facility] Last Admin: 06/21/20 08:54 Dose: 40 mg Documented by: Hydralazine HCl (Hydralazine 20 Mg/Ml Sdv) 10 mg IVPUSH Q4H PRN PRN Reason: Hypertension Promethazine HCl 12.5 mg/ (Sodium Chloride) 50.5 mls @ 100 mls/hr IV Q6H PRN PRN Reason: Nausea/Vomiting Lactated Ringer's (Ringers, Lactated) 1,000 mls @ 50 mls/hr IV ASDIRECTED [facility] Last Admin: 06/21/20 10:48 Dose: 50 mls/hr Documented by: Insulin Human Lispro (Insulin Lispro 100 Unit/Ml) 0 unit SUBCUT TIDMEALS [facility]; Protocol Last Admin: 06/21/20 11:59 Dose: Not Given Documented by: Levothyroxine Sodium (Levothyroxine 112 Mcg Tab) 112 mcg PO DAILY [facility] Last Admin: 06/21/20 08:54 Dose: 112 mcg Documented by: Lorazepam (Lorazepam 2 Mg/Ml Sdv) 1 mg IV Q6H PRN PRN Reason: Agitation Quetiapine Fumarate (Quetiapine 25 Mg Tab) 12.5 mg PO BID PRN PRN Reason: Agitation Rosuvastatin Calcium (Rosuvastatin 10 Mg Tab) 40 mg PO BEDTIME [facility] Last Admin: 06/20/20 21:14 Dose: 40 mg Documented by: Sodium Chloride (Sodium Chloride 0.9% 10 Ml Syringe) 10 ml FLUSH ASDIRECTED PRN PRN Reason: Keep Vein Open Last Admin: 06/19/20 15:12 Dose: 10 ml Documented by: Discontinued Medications Heparin Sodium (Porcine) (Heparin Sodium 5,000 Units/Ml Vial) 5,000 units SUBCUT Q8H [facility] Last Admin: 06/20/20 09:22 Dose: Not Given Documented by: Heparin Sodium (Porcine) (Heparin Sodium 5,000 Units/Ml Vial) 5,000 units SUBCUT Q8H [facility] Last Admin: 06/20/20 06:24 Dose: 5,000 units Documented by: Lactated Ringer's (Ringers, Lactated) 1,000 mls @ 60 mls/hr IV ASDIRECTED [facility] Last Admin: 06/19/20 21:40 Dose: 60 mls/hr Documented by: Isosorbide Mononitrate (Isosorbide Mononitrate 30 Mg Tab.Er) 15 mg PO DAILY [facility] Last Admin: 06/20/20 09:07 Dose: 15 mg Documented by: Metoprolol Succinate (Metoprolol Succinate 50 Mg Tab.Er) 50 mg PO DAILY [facility] Metoprolol Succinate (Metoprolol Succinate 50 Mg Tab.Er) 25 mg PO DAILY [facility] Metoprolol Succinate (Metoprolol Succinate 25 Mg Tab.Er) 25 mg PO DAILY [facility] Last Admin: 06/20/20 09:08 Dose: Not Given Documented by: Oral Electrolytes (Sodium Chloride/Potassium Chloride Tab) 1 each PO Q2H [facility] Stop: 06/20/20 16:16 Last Admin: 06/20/20 19:48 Dose: Not Given Documented by: Potassium Chloride (Potassium Chloride 20 Meq Tab.Er) 40 meq PO TID@1200,1700,2200 [facility] Last Admin: 06/20/20 21:14 Dose: 40 meq Documented by: - Exam Physical Findings Comments:: General: Alert, Cooperative HEENT: Conjunctiva Clear, EOMI, Pupils Equal, Pupils Reactive Neck: Supple, Full Range of Motion Lungs: Clear to Auscultation, Normal Respiratory Effort Cardiovascular: Normal S1, Normal S2 GI/Abdominal Exam: Normal Bowel Sounds, Soft, Non-Tender, No Organomegaly, No Distention Extremities: Normal Inspection, Normal Range of Motion, Non-Tender, No Pedal Edema Skin: Warm, Dry, Intact Neurological: Cranial Nerves Intact, Reflexes Equal Bilateral, Strength Equal Bilateral, Normal Speech, Sensation Intact Neuro Extensive - Mental Status: Alert, Normal Mood/Affect Neuro Extensive - Motor, Sensory, Reflexes: CN II-XII Intact, Normal Reflexes Psychiatric: Alert, Normal Affect, Normal Mood - Patient Data Lab Results Last 24 hrs: Laboratory Results - last 24 hr 06/19/20 06/20/20 06/20/20 Range/Units 17:54 17:45 21:21 WBC (3.98-10.04) K/mm3 RBC (3.98-5.22) M/mm3 Hgb (11.2-15.7) gm/dl Hct (34.1-44.9) % MCV (79.4-94.8) fl MCH (25.6-32.2) pg MCHC (32.2-35.5) g/dl RDW Std Deviation (36.4-46.3) fL Plt Count (182-369) K/mm3 MPV (9.4-12.3) fl Neut % (Auto) (34.0-71.1) % Lymph % (Auto) (19.3-51.7) % [place] % (Auto) (4.7-12.5) % Eos % (Auto) (0.7-5.8) Baso % (Auto) (0.1-1.2) % Neut # (Auto) (1.56-6.13) K/mm3 Lymph # (Auto) (1.18-3.74) K/mm3 [place] # (Auto) (0.24-0.36) K/mm3 Eos # (Auto) (0.04-0.36) K/mm3 Baso # (Auto) (0.01-0.08) K/mm3 Sodium (136-145) mEq/L Potassium (3.5-5.1) mEq/L Chloride (98-107) mEq/L Carbon Dioxide (21-32) mEq/L Anion Gap (5-15) BUN (7-18) mg/dL Creatinine (0.55-1.02) mg/dL Est Cr Clr Drug Dosing mL/min Estimated GFR (MDRD) (>60) mL/min BUN/Creatinine Ratio (14-18) Glucose (83-115) mg/dL POC Glucose 107 116 H (83-110) mg/dL Calcium (8.5-10.1) mg/dL Total Bilirubin (0.2-1.0) mg/dL AST (15-37) U/L ALT (14-59) U/L Alkaline Phosphatase (46-116) U/L Total Protein (6.4-8.2) g/dl Albumin (3.4-5.0) g/dl Globulin gm/dL Albumin/Globulin Ratio (1-2) Procalcitonin 0.10 H ng/mL 06/21/20 06/21/20 06/21/20 Range/Units 04:43 04:43 06:20 WBC 4.92 (3.98-10.04) K/mm3 RBC 3.80 L (3.98-5.22) M/mm3 Hgb 11.9 (11.2-15.7) gm/dl Hct 37.4 (34.1-44.9) % MCV 98.4 H (79.4-94.8) fl MCH 31.3 (25.6-32.2) pg MCHC 31.8 L (32.2-35.5) g/dl RDW Std Deviation 49.3 H (36.4-46.3) fL Plt Count 160 L (182-369) K/mm3 MPV 9.8 (9.4-12.3) fl Neut % (Auto) 46.2 (34.0-71.1) % Lymph % (Auto) 37.4 (19.3-51.7) % [place] % (Auto) 13.4 H (4.7-12.5) % Eos % (Auto) 2.8 (0.7-5.8) Baso % (Auto) 0.2 (0.1-1.2) % Neut # (Auto) 2.27 (1.56-6.13) K/mm3 Lymph # (Auto) 1.84 (1.18-3.74) K/mm3 [place] # (Auto) 0.66 H (0.24-0.36) K/mm3 Eos # (Auto) 0.14 (0.04-0.36) K/mm3 Baso # (Auto) 0.01 (0.01-0.08) K/mm3 Sodium 143 (136-145) mEq/L Potassium 4.7 D (3.5-5.1) mEq/L Chloride 107 (98-107) mEq/L Carbon Dioxide 29 (21-32) mEq/L Anion Gap 11.7 (5-15) BUN 13 (7-18) mg/dL Creatinine 1.1 H (0.55-1.02) mg/dL Est Cr Clr Drug Dosing 31.93 mL/min Estimated GFR (MDRD) 47 (>60) mL/min BUN/Creatinine Ratio 11.8 L (14-18) Glucose 91 (83-115) mg/dL POC Glucose 105 (83-110) mg/dL Calcium 9.0 (8.5-10.1) mg/dL Total Bilirubin 0.6 (0.2-1.0) mg/dL AST 28 (15-37) U/L ALT 30 (14-59) U/L Alkaline Phosphatase 39 L (46-116) U/L Total Protein 5.7 L (6.4-8.2) g/dl Albumin 2.5 L (3.4-5.0) g/dl Globulin 3.2 gm/dL Albumin/Globulin Ratio 0.8 L (1-2) Procalcitonin ng/mL 06/21/20 Range/Units 10:39 WBC (3.98-10.04) K/mm3 RBC (3.98-5.22) M/mm3 Hgb (11.2-15.7) gm/dl Hct (34.1-44.9) % MCV (79.4-94.8) fl MCH (25.6-32.2) pg MCHC (32.2-35.5) g/dl RDW Std Deviation (36.4-46.3) fL Plt Count (182-369) K/mm3 MPV (9.4-12.3) fl Neut % (Auto) (34.0-71.1) % Lymph % (Auto) (19.3-51.7) % [place] % (Auto) (4.7-12.5) % Eos % (Auto) (0.7-5.8) Baso % (Auto) (0.1-1.2) % Neut # (Auto) (1.56-6.13) K/mm3 Lymph # (Auto) (1.18-3.74) K/mm3 [place] # (Auto) (0.24-0.36) K/mm3 Eos # (Auto) (0.04-0.36) K/mm3 Baso # (Auto) (0.01-0.08) K/mm3 Sodium (136-145) mEq/L Potassium (3.5-5.1) mEq/L Chloride (98-107) mEq/L Carbon Dioxide (21-32) mEq/L Anion Gap (5-15) BUN (7-18) mg/dL Creatinine (0.55-1.02) mg/dL Est Cr Clr Drug Dosing mL/min Estimated GFR (MDRD) (>60) mL/min BUN/Creatinine Ratio (14-18) Glucose (83-115) mg/dL POC Glucose 140 H (83-110) mg/dL Calcium (8.5-10.1) mg/dL Total Bilirubin (0.2-1.0) mg/dL AST (15-37) U/L ALT (14-59) U/L Alkaline Phosphatase (46-116) U/L Total Protein (6.4-8.2) g/dl Albumin (3.4-5.0) g/dl Globulin gm/dL Albumin/Globulin Ratio (1-2) Procalcitonin ng/mL Result Diagrams: 06/21/20 04:43 06/21/20 04:43 Sepsis Event Note - Evaluation Sepsis Screening Result: No Definite Risk - Focused Exam Vital Signs: Vital Signs Temp Pulse Resp BP Pulse Ox 06/21/20 08:55 36.4 C 83 18 118/62 97 06/21/20 05:01 36.4 C 80 17 102/82 96 - Problem List Review Problem List Initiated/Reviewed/Updated: Yes - My Orders Last 24 Hours: My Active Orders 06/21/20 08:30 Lactated Ringers [Ringers, Lactated] 1,000 ml IV ASDIRECTED 06/21/20 09:00 amLODIPine [Norvasc] 2.5 mg PO DAILY 06/22/20 05:00 CBC WITH AUTO DIFF [HEME] DAILY COMPREHENSIVE METABOLIC PN,CMP [CHEM] DAILY 06/23/20 05:00 CBC WITH AUTO DIFF [HEME] DAILY COMPREHENSIVE METABOLIC PN,CMP [CHEM] DAILY 06/23/20 07:00 CBC W/O DIFF,HEMOGRAM [HEME] MOTH@0700 06/24/20 05:00 CBC WITH AUTO DIFF [HEME] DAILY COMPREHENSIVE METABOLIC PN,CMP [CHEM] DAILY 06/25/20 05:00 CBC WITH AUTO DIFF [HEME] DAILY COMPREHENSIVE METABOLIC PN,CMP [CHEM] DAILY 06/27/20 07:00 CBC W/O DIFF,HEMOGRAM [HEME] MOTH@0700 06/30/20 07:00 CBC W/O DIFF,HEMOGRAM [HEME] MOTH@0700 07/04/20 07:00 CBC W/O DIFF,HEMOGRAM [HEME] MOTH@0700 07/07/20 07:00 CBC W/O DIFF,HEMOGRAM [HEME] MOTH@0700 - Plan Plan:: Patient is an 85-year-old female with a history of COPD status post CABG, prediabetes, hypertension, and hypothyroidism who was brought to the ER from assisted living due to generalized weakness and diarrhea. Assessment and plan: Diarrhea Etiology unknown resolved History of use of antibiotics 2 months ago for UTI gentle IVF Generalized weakness Could be due to dehydration from diarrhea. No evidence of infection. No focal neurological deficits PT OT CAD, s/p CABG Continue home medication aspirin and statin Prediabetes Hemoglobin A1c 6.2 Insulin sliding scale HTN Bradycardia and soft BP at times Will discontinue home medication Imdur and metoprolol and start low dose amlodipine 2.5mg daily Hydralazine as needed ADAMA or ADAMA on CKD, creatinine 0.9 on 04/19/2015 Creatinine 1.1 Avoid nephrotoxic meds Intake and output Repeat the renal function the morning Dehydration Resolved Self care deficit As per daughter, patient has lost 40 to 6 pounds over the past 6 months Possible dementia PT OT Dietitian consult Hypothyroidism Continue home medication Synthroid Thrombocytopenia No evidence of bleeding Repeat a CBC in morning Elelvation of proBNP 2411 troponin negative x 2 Echo pending Electrolytes imbalance Replaced and repeat it DVT prophylaxis: Lovenox CODE STATUS: DNR/DNI. Discussed with the patient and the daughter about the CODE STATUS. Both agreed with DNR and DNI. as per daughter, patient has a will-DNR/DNI. Disposition: PT OT
[2020-06-21] MEDS: Metoprolol Tartrate 25 MG Tab PO SCH ×2 (15:35→20:46)
[2020-06-21] MEDS: Aspirin 325 MG Tab.EC PO SCH (20:46)
[2020-06-21] MEDS: Rosuvastatin 10 MG Tab PO SCH (20:46)
[2020-06-21] MEDS: Donepezil 10 MG Tab PO SCH (20:46)
[2020-06-22] MEDS: Levothyroxine 112 MCG Tab PO SCH (08:40)
[2020-06-22] MEDS: Cholecalciferol (Vitamin D3) 25 MCG Tab PO SCH (08:40)
[2020-06-22] MEDS: Metoprolol Tartrate 25 MG Tab PO SCH (08:41)
[2020-06-22] MEDS: Enoxaparin 40 MG/0.4 ML Syringe SUBCUT SCH (08:43)
--- NOTE | 2020-06-22 11:26 | PCM.DCSUM1 ---
Discharge Summary - Hospital Course Free Text/Narrative:: Patient is an 85-year-old female with a history of COPD status post CABG, prediabetes, hypertension, and hypothyroidism who was brought to the ER from assisted living due to generalized weakness and diarrhea. Assessment and plan: Diarrhea Etiology unknown resolved History of use of antibiotics 2 months ago for UTI gentle IVF Generalized weakness Could be due to dehydration from diarrhea. No evidence of infection. No focal neurological deficits PT OT CAD, s/p CABG Continue home medication aspirin and statin Prediabetes Hemoglobin A1c 6.2 Insulin sliding scale HTN Bradycardia and soft BP at times discontinued home medication Imdur and changed metoprolol to 12.5mg bid Hydralazine as needed ADAMA or ADAMA on CKD, creatinine 0.9 on 04/19/2015 Creatinine went down to 1.0 Avoid nephrotoxic meds Intake and output Repeat the renal function the morning Dehydration Resolved Self care deficit As per daughter, patient has lost 40 to 6 pounds over the past 6 months Possible dementia PT OT Dietitian consult Hypothyroidism Continue home medication Synthroid Thrombocytopenia No evidence of bleeding Repeat a CBC in morning Elelvation of proBNP 2411 troponin negative x 2 Echo -EF 60-65%. Moderate to severe tricuspid valve regurgitation. There is a severe biatrial dilation. Lasix 20 mg p.o. daily. follow with PCP Electrolytes imbalance Replaced and repeat it Today patient does not have any complaints. Denies headache, dizziness, chest pain, shortness of breath, abdominal pain, nausea, vomiting, or dysuria. Vital signs are stable and acceptable. She will be discharged to SNF today to follow with the PCP in 3 days. Continue PT OT. Have CBC, CMP and electrolytes in 3 days and weekly afterwards. Do not drive until approval from MD. Call PCP for medical issues. Diagnosis: Stroke: No - Discharge Data Discharge Date: 06/22/20 Discharge Disposition: DC/Tfer to SNF 03 Condition: Poor - Referral to Home Health Primary Care Physician: Fidencio Tariq MD - Patient Summary/Data Consults: Consultations 06/19/20 16:44 Consult to Radiotelegrapher [CONS] Routine OT Evaluation and Treatment [CONS] Routine PT Evaluation and Treatment [CONS] Routine Recommended Follow-up Testing/Procedures: Follow with PCP in 3 days. Repeat CBC, CMP and electrolytes in 3 days and then weekly. - Patient Instructions Diet: Diabetic Diet Activity: As Tolerated - Discharge Plan *PRESCRIPTION DRUG MONITORING PROGRAM REVIEWED*: Not Applicable *COPY OF PRESCRIPTION DRUG MONITORING REPORT IN PATIENT EAMON: Not Applicable Prescriptions/Med Rec: Insulin Lispro [Humalog] See Protocol SUBCUT TIDMEALS #10 ml Furosemide [Lasix] 20 mg PO DAILY #15 tab Metoprolol Tartrate [Lopressor] 12.5 mg PO BID #15 tablet Home Medications: Home Meds Cholecalciferol (Vitamin D3) [Vitamin D3] 1,000 units PO DAILY 04/15/15 [History] Aspirin 325 mg PO DAILY 06/19/20 [History] Donepezil HCl [Aricept] 10 mg PO BEDTIME 06/19/20 [History] Zinc Amino Acid Chelate [Zinc Chelated] 30 mg PO DAILY 06/19/20 [History] Furosemide [Lasix] 20 mg PO DAILY #15 tab 06/22/20 [Rx] Levothyroxine 112 mcg PO DAILY tablet 06/22/20 [Rx] Metoprolol Tartrate [Lopressor] 12.5 mg PO BID #15 tablet 06/22/20 [Rx] Rosuvastatin [Crestor] 40 mg PO BEDTIME tablet 06/22/20 [Rx] Patient Handouts: Weakness, [id number], Diarrhea, Adult, [id number] Forms: ED Department Discharge Referrals: Fidencio Tariq MD [Primary Care Provider] - 06/29/20 11:00 am (Please come 15 minutes prior to the appointment to check in.) - Discharge Summary/Plan Comment DC Time >30 min.: Yes - General Info Date of Service: 06/22/20 Admission Dx/Problem (Free Text: Admission Diagnosis/Problem Admission Diagnosis/Problem Diarrhea Subjective Update: Patient is an 85-year-old female with a history of COPD status post CABG, prediabetes, hypertension, and hypothyroidism who was brought to the ER from assisted living due to generalized weakness and diarrhea. Patient denies having diarrhea. Denies nausea or vomiting. Heart rate is 55-75 and blood pressure is acceptable Platelets 181 which was 160 yesterday, creatinine 1.0 - Review of Systems Systems Review Comment: General: Reports: Weakness, Fatigue, Decreased Appetite HEENT: Reports: No Symptoms Pulmonary: Reports: No Symptoms Cardiovascular: Reports: No Symptoms Gastrointestinal: Reports: Decreased Appetite, Genitourinary: Reports: No Symptoms Musculoskeletal: Reports: No Symptoms Skin: Reports: No Symptoms Psychiatric: Reports: No Symptoms Neurological: Reports: No Symptoms Hematologic/Lymphatic: Reports: No Symptoms Immunologic: Reports: No Symptoms - Patient Data Vitals - Most Recent: Last Vital Signs Temp 36.3 C 06/22/20 07:24 Pulse 97 06/22/20 08:41 Resp 16 06/22/20 07:24 BP 117/85 06/22/20 08:41 Pulse Ox 98 06/22/20 07:24 Weight - Most Recent: 75.115 kg I&O - Last 24 hours: Intake & Output 06/21/20 06/22/20 06/22/20 22:59 06:59 14:59 Intake Total 791 928 Output Total 75 250 Balance 716 678 Lab Results - Last 24 hrs: Laboratory Results - last 24 hr 06/21/20 06/21/20 06/22/20 Range/Units 17:04 21:17 06:00 WBC 4.75 (3.98-10.04) K/mm3 RBC 3.65 L (3.98-5.22) M/mm3 Hgb 11.5 (11.2-15.7) gm/dl Hct 36.4 (34.1-44.9) % MCV 99.7 H (79.4-94.8) fl MCH 31.5 (25.6-32.2) pg MCHC 31.6 L (32.2-35.5) g/dl RDW Std Deviation 49.8 H (36.4-46.3) fL Plt Count 181 L (182-369) K/mm3 MPV 9.5 (9.4-12.3) fl Neut % (Auto) 50.1 (34.0-71.1) % Lymph % (Auto) 35.8 (19.3-51.7) % Bos[place] % (Auto) 10.7 (4.7-12.5) % Eos % (Auto) 3.2 (0.7-5.8) Baso % (Auto) 0.2 (0.1-1.2) % Neut # (Auto) 2.38 (1.56-6.13) K/mm3 Lymph # (Auto) 1.70 (1.18-3.74) K/mm3 [place] # (Auto) 0.51 H (0.24-0.36) K/mm3 Eos # (Auto) 0.15 (0.04-0.36) K/mm3 Baso # (Auto) 0.01 (0.01-0.08) K/mm3 Sodium (136-145) mEq/L Potassium (3.5-5.1) mEq/L Chloride (98-107) mEq/L Carbon Dioxide (21-32) mEq/L Anion Gap (5-15) BUN (7-18) mg/dL Creatinine (0.55-1.02) mg/dL Est Cr Clr Drug Dosing mL/min Estimated GFR (MDRD) (>60) mL/min BUN/Creatinine Ratio (14-18) Glucose (83-115) mg/dL POC Glucose 109 109 (83-110) mg/dL Calcium (8.5-10.1) mg/dL Total Bilirubin (0.2-1.0) mg/dL AST (15-37) U/L ALT (14-59) U/L Alkaline Phosphatase (46-116) U/L Total Protein (6.4-8.2) g/dl Albumin (3.4-5.0) g/dl Globulin gm/dL Albumin/Globulin Ratio (1-2) SARS-CoV-2 RNA (RISHI) (NEGATIVE) 06/22/20 06/22/20 06/22/20 Range/Units 06:00 06:19 08:00 WBC (3.98-10.04) K/mm3 RBC (3.98-5.22) M/mm3 Hgb (11.2-15.7) gm/dl Hct (34.1-44.9) % MCV (79.4-94.8) fl MCH (25.6-32.2) pg MCHC (32.2-35.5) g/dl RDW Std Deviation (36.4-46.3) fL Plt Count (182-369) K/mm3 MPV (9.4-12.3) fl Neut % (Auto) (34.0-71.1) % Lymph % (Auto) (19.3-51.7) % Bos[place] % (Auto) (4.7-12.5) % Eos % (Auto) (0.7-5.8) Baso % (Auto) (0.1-1.2) % Neut # (Auto) (1.56-6.13) K/mm3 Lymph # (Auto) (1.18-3.74) K/mm3 Bos[place] # (Auto) (0.24-0.36) K/mm3 Eos # (Auto) (0.04-0.36) K/mm3 Baso # (Auto) (0.01-0.08) K/mm3 Sodium 142 (136-145) mEq/L Potassium 4.4 (3.5-5.1) mEq/L Chloride 107 (98-107) mEq/L Carbon Dioxide 28 (21-32) mEq/L Anion Gap 11.4 (5-15) BUN 13 (7-18) mg/dL Creatinine 1.0 (0.55-1.02) mg/dL Est Cr Clr Drug Dosing 34.87 mL/min Estimated GFR (MDRD) 53 (>60) mL/min BUN/Creatinine Ratio 13.0 L (14-18) Glucose 94 (83-115) mg/dL POC Glucose 111 H (83-110) mg/dL Calcium 9.3 (8.5-10.1) mg/dL Total Bilirubin 0.5 (0.2-1.0) mg/dL AST 30 (15-37) U/L ALT 29 (14-59) U/L Alkaline Phosphatase 39 L (46-116) U/L Total Protein 5.7 L (6.4-8.2) g/dl Albumin 2.5 L (3.4-5.0) g/dl Globulin 3.2 gm/dL Albumin/Globulin Ratio 0.8 L (1-2) SARS-CoV-2 RNA (RISHI) Negative (NEGATIVE) 06/22/20 Range/Units 10:32 WBC (3.98-10.04) K/mm3 RBC (3.98-5.22) M/mm3 Hgb (11.2-15.7) gm/dl Hct (34.1-44.9) % MCV (79.4-94.8) fl MCH (25.6-32.2) pg MCHC (32.2-35.5) g/dl RDW Std Deviation (36.4-46.3) fL Plt Count (182-369) K/mm3 MPV (9.4-12.3) fl Neut % (Auto) (34.0-71.1) % Lymph % (Auto) (19.3-51.7) % Bos[place] % (Auto) (4.7-12.5) % Eos % (Auto) (0.7-5.8) Baso % (Auto) (0.1-1.2) % Neut # (Auto) (1.56-6.13) K/mm3 Lymph # (Auto) (1.18-3.74) K/mm3 [place] # (Auto) (0.24-0.36) K/mm3 Eos # (Auto) (0.04-0.36) K/mm3 Baso # (Auto) (0.01-0.08) K/mm3 Sodium (136-145) mEq/L Potassium (3.5-5.1) mEq/L Chloride (98-107) mEq/L Carbon Dioxide (21-32) mEq/L Anion Gap (5-15) BUN (7-18) mg/dL Creatinine (0.55-1.02) mg/dL Est Cr Clr Drug Dosing mL/min Estimated GFR (MDRD) (>60) mL/min BUN/Creatinine Ratio (14-18) Glucose (83-115) mg/dL POC Glucose 127 H (83-110) mg/dL Calcium (8.5-10.1) mg/dL Total Bilirubin (0.2-1.0) mg/dL AST (15-37) U/L ALT (14-59) U/L Alkaline Phosphatase (46-116) U/L Total Protein (6.4-8.2) g/dl Albumin (3.4-5.0) g/dl Globulin gm/dL Albumin/Globulin Ratio (1-2) SARS-CoV-2 RNA (RISHI) (NEGATIVE) Med Orders - Current: Current Medications Acetaminophen (Acetaminophen 325 Mg Tab) 650 mg PO Q6H PRN PRN Reason: Pain (Mild 1-3)/fever Hydrocodone Bitart/Acetaminophen (Acetaminophen/Hydrocodone 325-5 Mg Tab) 1 tab PO Q6H PRN PRN Reason: Pain (moderate 4-6) Albuterol/Ipratropium (Albuterol/Ipratropium 3.0-0.5 Mg/3 Ml Neb Soln) 3 ml NEB Q4H PRN PRN Reason: Shortness Of Breath/wheezing Aspirin (Aspirin 325 Mg Tab.Ec) 325 mg PO BEDTIME [facility] Last Admin: 06/21/20 20:46 Dose: 325 mg Documented by: Cholecalciferol (Cholecalciferol (Vitamin D3) 25 Mcg Tab) 25 mcg PO DAILY [facility] Last Admin: 06/22/20 08:40 Dose: 25 mcg Documented by: Donepezil HCl (Donepezil 10 Mg Tab) 10 mg PO BEDTIME [facility] Last Admin: 06/21/20 20:46 Dose: 10 mg Documented by: Enoxaparin Sodium (Enoxaparin 40 Mg/0.4 Ml Syringe) 40 mg SUBCUT DAILY [facility] Last Admin: 06/22/20 08:43 Dose: 40 mg Documented by: Hydralazine HCl (Hydralazine 20 Mg/Ml Sdv) 10 mg IVPUSH Q4H PRN PRN Reason: Hypertension Promethazine HCl 12.5 mg/ (Sodium Chloride) 50.5 mls @ 100 mls/hr IV Q6H PRN PRN Reason: Nausea/Vomiting Insulin Human Lispro (Insulin Lispro 100 Unit/Ml) 0 unit SUBCUT TIDMEALS [facility]; Protocol Last Admin: 06/22/20 07:05 Dose: Not Given Documented by: Levothyroxine Sodium (Levothyroxine 112 Mcg Tab) 112 mcg PO DAILY [facility] Last Admin: 06/22/20 08:40 Dose: 112 mcg Documented by: Lorazepam (Lorazepam 2 Mg/Ml Sdv) 1 mg IV Q6H PRN PRN Reason: Agitation Metoprolol Tartrate (Metoprolol Tartrate 25 Mg Tab) 12.5 mg PO BID [facility] Last Admin: 06/22/20 08:41 Dose: 12.5 mg Documented by: Quetiapine Fumarate (Quetiapine 25 Mg Tab) 12.5 mg PO BID PRN PRN Reason: Agitation Rosuvastatin Calcium (Rosuvastatin 10 Mg Tab) 40 mg PO BEDTIME [facility] Last Admin: 06/21/20 20:46 Dose: 40 mg Documented by: Sodium Chloride (Sodium Chloride 0.9% 10 Ml Syringe) 10 ml FLUSH ASDIRECTED PRN PRN Reason: Keep Vein Open Last Admin: 06/19/20 15:12 Dose: 10 ml Documented by: Discontinued Medications Amlodipine Besylate (Amlodipine 2.5 Mg Tab) 2.5 mg PO DAILY [facility] Last Admin: 06/21/20 08:55 Dose: 2.5 mg Documented by: Heparin Sodium (Porcine) (Heparin Sodium 5,000 Units/Ml Vial) 5,000 units SUBCUT Q8H [facility] Last Admin: 06/20/20 09:22 Dose: Not Given Documented by: Heparin Sodium (Porcine) (Heparin Sodium 5,000 Units/Ml Vial) 5,000 units SUBCUT Q8H [facility] Last Admin: 06/20/20 06:24 Dose: 5,000 units Documented by: Lactated Ringer's (Ringers, Lactated) 1,000 mls @ 60 mls/hr IV ASDIRECTED [facility] Last Admin: 06/19/20 21:40 Dose: 60 mls/hr Documented by: Lactated Ringer's (Ringers, Lactated) 1,000 mls @ 50 mls/hr IV ASDIRECTED [facility] Last Admin: 06/21/20 10:48 Dose: 50 mls/hr Documented by: Isosorbide Mononitrate (Isosorbide Mononitrate 30 Mg Tab.Er) 15 mg PO DAILY [facility] Last Admin: 06/20/20 09:07 Dose: 15 mg Documented by: Metoprolol Succinate (Metoprolol Succinate 50 Mg Tab.Er) 50 mg PO DAILY [facility] Metoprolol Succinate (Metoprolol Succinate 50 Mg Tab.Er) 25 mg PO DAILY [facility] Metoprolol Succinate (Metoprolol Succinate 25 Mg Tab.Er) 25 mg PO DAILY [facility] Last Admin: 06/20/20 09:08 Dose: Not Given Documented by: Oral Electrolytes (Sodium Chloride/Potassium Chloride Tab) 1 each PO Q2H [facility] Stop: 06/20/20 16:16 Last Admin: 06/20/20 19:48 Dose: Not Given Documented by: Potassium Chloride (Potassium Chloride 20 Meq Tab.Er) 40 meq PO TID@1200,1700,2200 [facility] Last Admin: 06/20/20 21:14 Dose: 40 meq Documented by: - Exam Physical Findings Comments:: General: Alert, Cooperative HEENT: Conjunctiva Clear, EOMI, Pupils Equal, Pupils Reactive Neck: Supple, Full Range of Motion Lungs: Clear to Auscultation, Normal Respiratory Effort Cardiovascular: Normal S1, Normal S2 GI/Abdominal Exam: Normal Bowel Sounds, Soft, Non-Tender, No Organomegaly, No Distention Extremities: Normal Inspection, Normal Range of Motion, Non-Tender, No Pedal Edema Skin: Warm, Dry, Intact Neurological: Cranial Nerves Intact, Reflexes Equal Bilateral, Strength Equal Bilateral, Normal Speech, Sensation Intact Neuro Extensive - Mental Status: Alert, Normal Mood/Affect Neuro Extensive - Motor, Sensory, Reflexes: CN II-XII Intact, Normal Reflexes Psychiatric: Alert, Normal Affect, Normal Mood
[2020-06-22 12:45] VITALS: BP 116/65; PULSE 77
== END 2020-06-22 13:00 | DRG 641 ==
LOC: JD.ED 13:52 → JD.MS 16:37
PROVIDERS: ADMIT Internal Medicine; ATTEND Internal Medicine
DX: R53.1 Weakness (principal); E86.0 Dehydration; N17.9 Acute kidney failure, unspecified; I12.9 Hypertensive chronic kidney disease with stage 1 through stage 4 chronic kidney disease, or unspecified chronic kidney disease; N18.9 Chronic kidney disease, unspecified; I25.10 Atherosclerotic heart disease of native coronary artery without angina pectoris; I10 Essential (primary) hypertension; M16.11 Unilateral primary osteoarthritis, right hip; R73.03 Prediabetes; Z66 Do not resuscitate; E03.9 Hypothyroidism, unspecified; D69.6 Thrombocytopenia, unspecified; Z20.822 Contact with and (suspected) exposure to COVID-19; R00.1 Bradycardia, unspecified; I07.1 Rheumatic tricuspid insufficiency; H91.90 Unspecified hearing loss, unspecified ear; E78.00 Pure hypercholesterolemia, unspecified; R32 Unspecified urinary incontinence; M54.9 Dorsalgia, unspecified; M19.90 Unspecified osteoarthritis, unspecified site; H54.7 Unspecified visual loss; F32.9 Major depressive disorder, single episode, unspecified; Z95.1 Presence of aortocoronary bypass graft; Z87.440 Personal history of urinary (tract) infections; Z79.82 Long term (current) use of aspirin; Z79.899 Other long term (current) drug therapy; Z79.890 Hormone replacement therapy; Z86.73 Personal history of transient ischemic attack (TIA), and cerebral infarction without residual deficits; Z90.49 Acquired absence of other specified parts of digestive tract; Z79.01 Long term (current) use of anticoagulants
CPT/HCPCS: 0240U; 36415; 71045; 80053; 81001; 82962; 83036; 83735; 83880; 84145; 84484; 85025; 85610; 86140; 87045; 87046; 87641; 87899; 93005; 93306; 97110; 97116; 97162; 97166; 97530; 97535; 99285; 99222; 99232; 99239; A9270-GY; J1644; J1650; J7120; U0002